=== PATIENT | female | born 1955 | race Caucasian/White ===

== ENCOUNTER 2017-03-31 22:39 | Inpatient (IN) | payer SELFPAY ==
[~2017-03-31] VITALS: Ht 162.6 cm; Wt 53.8 kg
[~2017-03-31 22:39] MED LIST: ASPI325T PO; Z.0.NO CURRENT MEDS
[2017-03-31 22:47] VITALS: BP 160/104; PULSE 114; RESP 16; TEMP 100.5; O2SAT 98
[2017-03-31] MEDS ORDERED: ACETAMINOPHEN 325 MG TAB PO ONE (23:30)
[2017-03-31] MEDS ORDERED: ACETAMINOPHEN/HYDROcodone 325 MG/5 MG TAB PO ONE (23:30)
[2017-03-31] MEDS ORDERED: SODIUM CHLOR 0.9% 1000 ML INJ 1,000 ML IV ONE (23:30)
[2017-03-31] MEDS ORDERED: CLINDAMYCIN INJ 600 MG in SODIUM CHLORIDE 0.9% INJ 100 ML IV ONE (23:30)
[2017-03-31] MEDS ORDERED: KETOROLAC TROMETHAMINE 30 MG/ML (IVP) VIAL IVP ONE (23:30)
[2017-03-31] MEDS ORDERED: TETANUS/DIPHTHERIA TOXOID ADULT 0.5 ML VIAL IM ONE (23:30)
--- NOTE | 2017-03-31 23:34 | PD ---
HPI Chief Complaint: Skin Problem Time Seen by Provider: 23:13 Travel History International Travel<30 days: No Contact w/Intl Traveler<30days: No Traveled to known affect area: No History of Present Illness HPI The patient is a 61-year-old female who presents to the emergency department for pain and swelling to the forearms bilaterally. The patient states that she was advised by insects on her forearms which subsequently caused some erythema and swelling. The patient complains of pain over the affected area, denies any direct trauma such as scratching her IV drug use to the upper extremities. The patient does have a history of remote IV drug abuse , states she quit using IV drugs at the age of 17. She most recently used crack cocaine one week ago, via smoking. She denies any chronic alcohol abuse. She does complain of subjective fevers at home as well as diffuse body aches. Symptoms are moderate, no alleviating or exacerbating factors, however, she states her symptoms started after she was bit by an insect. PFSH Past Medical History Arthritis: No Asthma: No Autoimmune Disease: No Blood Disorders: No Heart Rhythm Problems: No Cancer: No High Cholesterol: No Chemotherapy: No Congestive Heart Failure: No COPD: No Cerebrovascular Accident: No Diminished Hearing: No GERD: No Glaucoma: No Hepatitis: Yes (C) Hiatal Hernia: No Hypertension: Yes Kidney Stones: No Psychiatric: No Myocardial Infarction: No Radiation Therapy: No Renal Failure: No Seizures: No Sleep Apnea: No Thyroid Disease: No Ulcer: No : 2 Para: 2 Ovarian Cysts: Yes Past Surgical History AICD: No Appendectomy: Yes Genitourinary Surgery: No Gynecologic Surgery: Yes (REMOVAL OVARIAN CYST) Hysterectomy: Yes Pacemaker: No Other Surgery: No Social History Alcohol Use: Yes Tobacco Use: Yes (1 week) Substance Use: Yes (crack cocaine one week ago) Allergies-Medications (Allergen,Severity, Reaction): Coded Allergies: No Known Allergies (Verified , 04/01/17) Reported Meds & Prescriptions Reported Meds & Active Scripts Active No Active Prescriptions or Reported Medications Review of Systems Except as stated in HPI: all other systems reviewed are Neg General / Constitutional: Positive: Fever, Chills HENT: No: Lightheadedness Cardiovascular: No: Chest Pain or Discomfort Respiratory: No: Shortness of Breath Gastrointestinal: No: Nausea, Vomiting, Abdominal Pain Musculoskeletal: Positive: Myalgias Skin: Positive Other (as noted in the history of present illness) Psychiatric: Positive: Substance Abuse Physical Exam Narrative GENERAL: Awake, alert, nontoxic-appearing 61-year-old female who appears her stated age and is in no acute respiratory distress. SKIN: Focused skin assessment warm/dry. Skin changes noted over the upper extremities bilateral over the extensor surface of the forearms with mild erythema and edema noted. Old-appearing lesions on the back as well as lower extremities. HEAD: Atraumatic. Normocephalic. EYES: Pupils equal and round. No scleral icterus. No injection or drainage. ENT: No nasal bleeding or discharge. Mucous membranes pink and moist. NECK: Trachea midline. No JVD. CARDIOVASCULAR: Regular rate and rhythm. No murmur appreciated. RESPIRATORY: No accessory muscle use. Clear to auscultation. Breath sounds equal bilaterally. GASTROINTESTINAL: Abdomen soft, non-tender, nondistended. MUSCULOSKELETAL: No obvious deformities. No clubbing. No cyanosis. No edema. NEUROLOGICAL: Awake and alert. No obvious cranial nerve deficits. Motor grossly within normal limits. Normal speech. PSYCHIATRIC: Appropriate mood and affect; insight and judgment normal. Data Data Last Documented VS Vital Signs Date Time Temp Pulse Resp B/P (MAP) Pulse Ox O2 Delivery O2 Flow Rate FiO2 04/01/17 01:09 99.4 88 18 129/62 (84) 99 Room Air Orders Orders Complete Blood Count With Diff (03/31/17 23:26) Blood Culture (03/31/17 23:26) Iv Access Insert/Monitor (03/31/17 23:26) Acetaminophen (Tylenol) (03/31/17 23:30) Acetamin-Hydrocod 325-5 Mg (Bonduel 5-325 (03/31/17 23:30) Ketorolac Inj (Toradol Inj) (03/31/17 23:30) Clindamycin Inj (Cleocin Inj) (03/31/17 23:30) Tetanus/Diphtheria Tox Adult (Tetanus/Di (03/31/17 23:30) Comprehensive Metabolic Panel (03/31/17 23:26) Creatine Kinase (Cpk) (03/31/17 23:26) Sodium Chlor 0.9% 1000 Ml Inj (Ns 1000 M (03/31/17 23:30) Lactic Acid (03/31/17 23:26) CKMB (03/31/17 ) CKMB% (03/31/17 ) Sodium Chlor 0.9% 1000 Ml Inj (Ns 1000 M (04/01/17 01:30) Potassium Chloride (Kcl) (04/01/17 01:30) Add Patient To Providers List (04/01/17 ) Admit To Inpatient (04/01/17 ) Vital Signs (Adult) DEVON.Q4H (04/01/17 01:35) Activity Oob With Assistance (04/01/17 01:35) Intake + Output 06,14,22 (04/01/17 01:35) Diet Regular Basic (04/01/17 Breakfast) Resp Oxygen Rohith C Titrat 1-4 L (04/01/17 ) Sodium Chloride 0.9% Flush (Ns Flush) (04/01/17 01:45) Sodium Chloride 0.9% Flush (Ns Flush) (04/01/17 09:00) Inpatient Certification (04/01/17 ) Admit Order (Ed Use Only) (04/01/17 01:41) Labs Laboratory Tests Test 03/31/17 00:00 White Blood Count 10.0 TH/MM3 Red Blood Count 3.27 MIL/MM3 Hemoglobin 9.6 GM/DL Hematocrit 28.9 % Mean Corpuscular Volume 88.5 FL Mean Corpuscular Hemoglobin 29.4 PG Mean Corpuscular Hemoglobin Concent 33.2 % Red Cell Distribution Width 15.7 % Platelet Count 228 TH/MM3 Mean Platelet Volume 7.8 FL Neutrophils (%) (Auto) 75.1 % Lymphocytes (%) (Auto) 12.1 % Monocytes (%) (Auto) 11.6 % Eosinophils (%) (Auto) 0.9 % Basophils (%) (Auto) 0.3 % Neutrophils # (Auto) 7.5 TH/MM3 Lymphocytes # (Auto) 1.2 TH/MM3 Monocytes # (Auto) 1.2 TH/MM3 Eosinophils # (Auto) 0.1 TH/MM3 Basophils # (Auto) 0.0 TH/MM3 CBC Comment DIFF FINAL Differential Comment Blood Urea Nitrogen 9 MG/DL Creatinine 0.83 MG/DL Random Glucose 115 MG/DL Total Protein 8.0 GM/DL Albumin 3.0 GM/DL Calcium Level 8.2 MG/DL Alkaline Phosphatase 89 U/L Aspartate Amino Transf (AST/SGOT) 124 U/L Alanine Aminotransferase (ALT/SGPT) 76 U/L Total Bilirubin 0.6 MG/DL Sodium Level 130 MEQ/L Potassium Level 3.1 MEQ/L Chloride Level 99 MEQ/L Carbon Dioxide Level 22.1 MEQ/L Anion Gap 9 MEQ/L Estimat Glomerular Filtration Rate 69 ML/MIN Lactic Acid Level 1.6 mmol/L Total Creatine Kinase 1288 U/L Creatine Kinase MB 9.7 NG/ML Creatine Kinase MB % 0.8 % [facility] Medical Decision Making Medical Screen Exam Complete: Yes Emergency Medical Condition: Yes Medical Record Reviewed: Yes Interpretation(s) Laboratory Tests Test 03/31/17 00:00 White Blood Count 10.0 TH/MM3 Red Blood Count 3.27 MIL/MM3 Hemoglobin 9.6 GM/DL Hematocrit 28.9 % Mean Corpuscular Volume 88.5 FL Mean Corpuscular Hemoglobin 29.4 PG Mean Corpuscular Hemoglobin Concent 33.2 % Red Cell Distribution Width 15.7 % Platelet Count 228 TH/MM3 Mean Platelet Volume 7.8 FL Neutrophils (%) (Auto) 75.1 % Lymphocytes (%) (Auto) 12.1 % Monocytes (%) (Auto) 11.6 % Eosinophils (%) (Auto) 0.9 % Basophils (%) (Auto) 0.3 % Neutrophils # (Auto) 7.5 TH/MM3 Lymphocytes # (Auto) 1.2 TH/MM3 Monocytes # (Auto) 1.2 TH/MM3 Eosinophils # (Auto) 0.1 TH/MM3 Basophils # (Auto) 0.0 TH/MM3 CBC Comment DIFF FINAL Differential Comment Blood Urea Nitrogen 9 MG/DL Creatinine 0.83 MG/DL Random Glucose 115 MG/DL Total Protein 8.0 GM/DL Albumin 3.0 GM/DL Calcium Level 8.2 MG/DL Alkaline Phosphatase 89 U/L Aspartate Amino Transf (AST/SGOT) 124 U/L Alanine Aminotransferase (ALT/SGPT) 76 U/L Total Bilirubin 0.6 MG/DL Sodium Level 130 MEQ/L Potassium Level 3.1 MEQ/L Chloride Level 99 MEQ/L Carbon Dioxide Level 22.1 MEQ/L Anion Gap 9 MEQ/L Estimat Glomerular Filtration Rate 69 ML/MIN Lactic Acid Level 1.6 mmol/L Total Creatine Kinase 1288 U/L Creatine Kinase MB 9.7 NG/ML Creatine Kinase MB % 0.8 % Differential Diagnosis Differential diagnosis includes infected wound, cellulitis, abscess, sepsis, drug abuse. Narrative Course IV was established, labs are drawn and sent, and the patient was placed on cardiac telemetry monitoring and continuous pulse oximetry monitoring. Blood culture and lactic acid were sent to lab. The patient was administered clindamycin 600 mg intravenously, 1 L normal saline, Toradol, and Bonduel for her pain. The patient's temperature did come down from 100.5-99.9 with medications. The patient's CPK was greater than 1200, most likely the cause of the patient's myalgias. The patient was administered a second liter of IV fluids. The lactic acid was normal at 1.6. The patient's potassium is low at 3.1, was replaced orally. The patient does have a history of crack cocaine use with secondary rhabdomyolysis and cellulitis with hypokalemia. Therefore, the patient will be a 23 hour observation to the on-call medical service. Sepsis Criteria SIRS Criteria (2 or more): Heart rate over 90 Physician Communication Physician Communication I discussed the patient with Dr. Ledesma who agrees with 23 hour observation. Diagnosis Primary Impression: Cellulitis Qualified Codes: L03.119 - Cellulitis of unspecified part of limb Additional Impressions: Rhabdomyolysis Qualified Codes: M62.82 - Rhabdomyolysis Hypokalemia Scripts No Active Prescriptions or Reported Meds Condition: Stable Zac Mcgregor MD Mar 31, 2017 23:34
[2017-04-01] VITALS (11 sets, daily range): BP systolic 119–192; BP diastolic 62–88; PULSE 73–96; RESP 17–20; TEMP 97.8–101.1; O2SAT 97–100
[2017-04-01 00:12] LABS: AUTOMATED NEUTROPHIL # 7.5 TH/MM3 (1.8-7.7); BASOPHIL % 0.3 % (0.0-2.0); EOSINOPHIL # 0.1 TH/MM3 (0-0.4); EOSINOPHIL % 0.9 % (0.0-4.0); HEMATOCRIT 28.9 % (35.0-46.0); HEMO FLAGS DIFF FINAL; LYMPH % 12.1 % (9.0-44.0); LYMPHOCYTE # 1.2 TH/MM3 (1.0-4.8); MEAN CELL VOLUME 88.5 FL (80.0-100.0); MEAN CORPUSCULAR HEMOGLOBIN 29.4 PG (27.0-34.0); MEAN CORPUSCULAR HGB CONC 33.2 % (32.0-36.0); MONO % 11.6 % (0.0-8.0); NEUT % 75.1 % (16.0-70.0); PLATELET COUNT 228 TH/MM3 (150-450); RED BLOOD COUNT 3.27 MIL/MM3 (4.00-5.30); RED CELL DISTRIBUTION WIDTH 15.7 % (11.6-17.2)
[2017-04-01 00:45] LABS: ALT (GPT) 76 U/L (10-53); ANION GAP 9 MEQ/L (5-15); AST (GOT) 124 U/L (15-37); BICARBONATE 22.1 MEQ/L (21.0-32.0); BLOOD UREA NITROGEN 9 MG/DL (7-18); CHLORIDE 99 MEQ/L (98-107); GLOMERULAR FILTRATION RATE 69 ML/MIN (>89); POTASSIUM 3.1 MEQ/L (3.5-5.1); SODIUM (NA) 130 MEQ/L (136-145)
[2017-04-01 00:59] LABS: ALKALINE PHOSPHATASE 89 U/L (45-117); CREATINE KINASE 1288 U/L (26-192); TOTAL BILIRUBIN ADULT 0.6 MG/DL (0.2-1.0)
[2017-04-01 01:14] LABS: CKMB 9.7 NG/ML (0.5-3.6)
[2017-04-01] MEDS ORDERED: SODIUM CHLOR 0.9% 1000 ML INJ 1,000 ML IV ONE (01:30)
[2017-04-01] MEDS ORDERED: POTASSIUM CHLORIDE 20 MEQ CONTROLLED RELEASE TAB PO ONE (01:30)
[2017-04-01] MEDS ORDERED: SODIUM CHLORIDE 0.9% FLUSH 10 ML FLUSH IV FLUSH PRN (01:45)
[2017-04-01] MEDS ORDERED: LACTULOSE SYRUP 20 GM/30 ML CUP PO PRN (02:00)
[2017-04-01] MEDS ORDERED: NALOXONE HCL 0.4 MG/ML AMP IV PRN (02:00)
[2017-04-01] MEDS ORDERED: MAGNESIUM HYDROXIDE SUSP 30 ML CUP PO PRN (02:00)
[2017-04-01] MEDS ORDERED: ACETAMINOPHEN 325 MG TAB PO PRN ×2 (02:00→20:45)
[2017-04-01] MEDS ORDERED: SENNOSIDES 8.6 MG TAB PO PRN (02:00)
[2017-04-01] MEDS ORDERED: KETOROLAC TROMETHAMINE 30 MG/ML (IVP) VIAL IVP PRN ×2 (02:00)
[2017-04-01] MEDS ORDERED: HYDROmorphone HCL 2 MG TAB PO PRN (02:00)
--- NOTE | 2017-04-01 02:48 | HHI.HP ---
[facility] No Primary Care Physician Admission Diagnosis cellulitis right upper extremity, rhabdomyolysis Diagnoses: Chief Complaint: Cellulitis bilateral upper extremities Travel History International Travel<30 Days: No Contact w/Intl Traveler <30 Da: No Traveled to Known Affected Are: No History of Present Illness This is a 61-year-old female with a history of hepatitis C. She is not a good historian. She presents to the emergency department because of bilateral upper extremity swelling, pain and erythema. She reports of chronic irritation of her extremities from insect bites for the past 6 months. Lately she noted swelling, erythema and pain affecting her upper extremities. No saltwater exposure. She also has subjective fevers and bodyaches admits to using crack cocaine about a week ago. History of remote IV drug use at age 17. She has been started on IV clindamycin in the emergency department. All other systems reviewed negative Review of Systems Except as stated in HPI: all other systems reviewed are Neg Past Family Social History Past Medical History As previously mentioned Past Surgical History Appendectomy and hysterectomy Reported Medications Denies Allergies: Coded Allergies: No Known Allergies (Verified , 04/01/17) Family History Diabetes Social History Occasional alcohol use. Tobacco use Physical Exam Vital Signs Vital Signs Date Time Temp Pulse Resp B/P (MAP) Pulse Ox O2 Delivery O2 Flow Rate FiO2 04/01/17 02:29 04/01/17 01:09 99.4 88 18 129/62 (84) 99 Room Air 03/31/17 22:47 100.5 114 16 160/104 (122) 98 Physical Exam GENERAL: This is a well-nourished, well-developed patient, in no apparent distress. SKIN: No rashes, ecchymoses or lesions. Cool and dry. Scattered wounds in various stages of healing in the back and extremities HEAD: Atraumatic. Normocephalic. No temporal or scalp tenderness. EYES: Pupils equal round and reactive. Extraocular motions intact. No scleral icterus. No injection or drainage. ENT: Nose without bleeding, purulent drainage or septal hematoma. Throat without erythema, tonsillar hypertrophy or exudate. Uvula midline. Airway patent. NECK: Trachea midline. No JVD or lymphadenopathy. Supple, nontender, no meningeal signs. CARDIOVASCULAR: Regular rate and rhythm without murmurs, gallops, or rubs. RESPIRATORY: Clear to auscultation. Breath sounds equal bilaterally. No wheezes , rales, or rhonchi. GASTROINTESTINAL: Abdomen soft, non-tender, nondistended. No guarding. MUSCULOSKELETAL: Extremities without clubbing, cyanosis, or edema. No joint tenderness, effusion, or edema noted. No calf tenderness. Negative Homans sign bilaterally. Bilateral upper extremities with cellulitis in the extensor surfaces with erythema, tenderness and edema NEUROLOGICAL: Awake and alert. Cranial nerves II through XII intact. Motor and sensory grossly within normal limits. Five out of 5 muscle strength in all muscle groups. Normal speech. Laboratory Date/Time Source Procedure Growth Status 03/31/17 00:00 Blood Peripheral Aerobic Blood Culture Pending Received 03/31/17 00:00 Blood Peripheral Anaerobic Blood Culture Pending Received Result Diagram: 03/31/17 0000 03/31/17 0000 Caprini VTE Risk Assessment Caprini VTE Risk Assessment: Mod/High Risk (score >= 2) Caprini Risk Assessment Model Point Value = 1 Point Value = 2 Point Value = 3 Point Value = 5 Age 41-60 Minor surgery BMI > 25 kg/m2 Swollen legs Varicose veins or History of unexplained or recurrent spontaneous Oral contraceptives or hormone replacement Sepsis (< 1 month) Serious lung disease, including pneumonia (< 1 month) Abnormal pulmonary function Acute myocardial infarction Congestive heart failure (< 1 month) History of inflammatory bowel disease Medical patient at bed rest Age 61-74 Arthroscopic surgery Major open surgery (> 45 min) Laparoscopic surgery (> 45 min) Malignancy Confined to bed (> 72 hours) Immobilizing plaster cast Central venous access Age >= 75 History of VTE Family history of VTE Factor V Leiden Prothrombin [id number] Lupus anticoagulant Anticardiolipin antibodies Elevated serum homocysteine Heparin-induced thrombocytopenia Other congenital or acquired thrombophilia Stroke (< 1 month) Elective arthroplasty Hip, pelvis, or leg fracture Acute spinal cord injury (< 1 month) Prophylaxis Regimen Total Risk Factor Score Risk Level Prophylaxis Regimen 0-1 Low Early ambulation 2 Moderate Order ONE of the following: *Sequential Compression Device (SCD) *Heparin 5000 units SQ BID 3-4 Higher Order ONE of the following medications: *Heparin 5000 units SQ TID *Enoxaparin/Lovenox 40 mg SQ daily (WT < 150 kg, CrCl > 30 mL/min) *Enoxaparin/Lovenox 30 mg SQ daily (WT < 150 kg, CrCl > 10-29 mL/min) *Enoxaparin/Lovenox 30 mg SQ BID (WT < 150 kg, CrCl > 30 mL/min) AND/OR *Sequential Compression Device (SCD) 5 or more Highest Order ONE of the following medications: *Heparin 5000 units SQ TID (Preferred with Epidurals) *Enoxaparin/Lovenox 40 mg SQ daily (WT < 150 kg, CrCl > 30 mL/min) *Enoxaparin/Lovenox 30 mg SQ daily (WT < 150 kg, CrCl > 10-29 mL/min) *Enoxaparin/Lovenox 30 mg SQ BID (WT < 150 kg, CrCl > 30 mL/min) AND *Sequential Compression Device (SCD) Assessment and Plan Assessment and Plan This is a 61-year-old female with a history of hepatitis C. She is not a good historian. She presents to the emergency department because of bilateral upper extremity swelling, pain and erythema. She reports of chronic irritation of her extremities from insect bites for the past 6 months. Lately she noted swelling, erythema and pain affecting her upper extremities. History of remote IV drug use at age 17. Bilateral upper extremity wound infection with cellulitis. Continue IV clindamycin and follow-up blood culture. The management with Dilaudid and IV morphine for consult infectious disease Rhabdomyolysis secondary to crack cocaine use. Continue IV hydration and monitor CK. Patient counseled regarding cocaine use Hypokalemia. Replace with 40 mEq potassium. Check magnesium Normocytic normochromic anemia. No gross bleeding. Hemoccult stools and check iron studies. Needs colonoscopy outpatient Mild hyponatremia. Asymptomatic. Monitor Transaminitis with history of hepatitis C DVT prophylaxis with SCD and early ambulation Discussed Condition With Patient Ruben Ledesma MD Apr 01, 2017 02:48
[2017-04-01] MEDS: SODIUM CHLOR 0.9% 1000 ML INJ 1,000 ML IV SCH ×3 (03:30→20:58)
[2017-04-01 04:19] LABS: MAGNESIUM 1.7 MG/DL (1.5-2.5)
[2017-04-01] MEDS: CLINDAMYCIN INJ 600 MG in SODIUM CHLORIDE 0.9% INJ 100 ML IV SCH ×3 (06:19→18:32)
[2017-04-01] MEDS: SODIUM CHLORIDE 0.9% FLUSH 10 ML FLUSH IV FLUSH SCH ×2 (08:34→20:58)
[2017-04-01] MEDS: DOCUSATE SODIUM 50 MG/SENNA 8.6 MG TAB PO SCH ×2 (08:34→20:58)
--- NOTE | 2017-04-01 12:24 | HHI.PR ---
Subjective Remarks resting comfortably with no distress. has some pain to both arms. no fever. Objective Vitals Vital Signs Date Time Temp Pulse Resp B/P (MAP) Pulse Ox O2 Delivery O2 Flow Rate FiO2 04/01/17 08:00 97.9 73 17 141/80 (100) 99 04/01/17 06:10 98 21 04/01/17 03:09 97.8 86 18 119/64 (82) 100 04/01/17 02:29 04/01/17 01:09 99.4 88 18 129/62 (84) 99 Room Air 03/31/17 22:47 100.5 114 16 160/104 (122) 98 I/O 03/31/17 03/31/17 03/31/17 04/01/17 04/01/17 04/01/17 07:00 15:00 23:00 07:00 15:00 23:00 Intake Total 240 ml Balance 240 ml Intake Oral 240 ml Result Diagram: 03/31/17 2305 03/31/17 2305 Objective Remarks GENERAL: This is a well-nourished, well-developed patient, in no apparent distress. CARDIOVASCULAR: Regular rate and regular rhythm without murmurs, gallops, or rubs. RESPIRATORY: Clear to auscultation. Breath sounds equal bilaterally. No wheezes , rales, or rhonchi. GASTROINTESTINAL: Abdomen soft, non-tender, nondistended. Normal, active bowel sounds MUSCULOSKELETAL: Extremities without clubbing, cyanosis, or edema. NEURO: Alert & Oriented x4 to person, place, time, situation. Moves all ext x4 skin; erythema noted over both upper extremities Medications and IVs Current Medications Acetaminophen (Tylenol) 650 mg ONCE ONCE PO Last administered on 04/01/17 00: 10; Start 03/31/17 at 23:30; Stop 03/31/17 at 23:31; Status DC Acetaminophen/ Hydrocodone Bitart ([place] 5-325 Mg) 1 tab ONCE ONCE PO Last administered on 04/01/17 00:10; Start 03/31/17 at 23:30; Stop 03/31/17 at 23:31 ; Status DC Ketorolac Tromethamine (Toradol Inj) 30 mg ONCE ONCE IVP Last administered on 04/01/17 00:10; Start 03/31/17 at 23:30; Stop 03/31/17 at 23:31; Status DC Clindamycin Phosphate 600 mg/ Sodium Chloride 104 ml @ 200 mls/hr ONCE ONCE IV Last administered on 04/01/17 00:10; Start 03/31/17 at 23:30; Stop at 00:01; Status DC Tetanus/ Diphtheria Toxoids (Tetanus/ Diphtheria Tox Adult) 0.5 ml ONCE ONCE IM Last administered on 04/01/17 00:09; Start 03/31/17 at 23:30; Stop 03/31/17 at 23:31; Status DC Sodium Chloride 1,000 ml @ 999 mls/hr BOLUS ONCE IV Last administered on 04/01 00:10; Start 03/31/17 at 23:30; Stop 04/01/17 at 00:30; Status DC Sodium Chloride 1,000 ml @ 999 mls/hr BOLUS ONCE IV Last administered on 04/01 01:29; Start 04/01/17 at 01:30; Stop 04/01/17 at 02:30; Status DC Potassium Chloride (KCl) 40 meq ONCE ONCE PO Last administered on 04/01/17 01 :29; Start 04/01/17 at 01:30; Stop 04/01/17 at 01:31; Status DC Sodium Chloride (NS Flush) 2 ml UNSCH PRN IV FLUSH FLUSH AFTER USING IV ACCESS ; Start 04/01/17 at 01:45 Sodium Chloride (NS Flush) 2 ml BID IV FLUSH ; Start 04/01/17 at 09:00 Clindamycin Phosphate 600 mg/ Sodium Chloride 104 ml @ 208 mls/hr Q6H IV Last administered on 04/01/17 06:19; Start 04/01/17 at 06:00 Sodium Chloride 1,000 ml @ 100 mls/hr Q10H IV Last administered on 04/01/17 03:30; Start 04/01/17 at 01:50 Acetaminophen (Tylenol) 650 mg Q4H PRN PO TEMP > 100.4; Start 04/01/17 at 02:00 Ondansetron HCl (Zofran Inj) 4 mg Q6H PRN IVP NAUSEA OR VOMITING; Start at 02:00 Ketorolac Tromethamine (Toradol Inj) 15 mg Q6H PRN IVP Pain 3-5; if unable to take PO; Start 04/01/17 at 02:00; Stop 04/06/17 at 01:59 Ketorolac Tromethamine (Toradol Inj) 30 mg Q6H PRN IVP Pain 6-10;if unable to take PO; Start 04/01/17 at 02:00; Stop 04/06/17 at 01:59 Morphine Sulfate (Morphine Inj) 2 mg Q3H PRN IV BREAKTHROUGH PAIN; Start at 02:00 Hydromorphone HCl (Dilaudid) 1 mg Q4H PRN PO PAIN SCALE 3 TO 5 Last administered on 04/01/17t 03:21; Start 04/01/17 at 02:00 Hydromorphone HCl (Dilaudid) 2 mg Q4H PRN PO PAIN SCALE 6 TO 10; Start at 02:00 Naloxone HCl (Narcan Inj) 0.4 mg UNSCH PRN IV SEE LABEL COMMENTS; Start at 02:00 Senna/Docusate Sodium (Eleonora-Colace) 1 tab BID PO ; Start 04/01/17 at 09:00 Magnesium Hydroxide (Milk Of Magnesia Liq) 30 ml Q12H PRN PO MILD - MODERATE CONSTIPATION; Start 04/01/17 at 02:00 Sennosides (Senokot) 17.2 mg Q12H PRN PO MODERATE - SEVERE CONSTIPATION; Start 04/01/17 at 02:00 Lactulose (Lactulose Liq) 30 ml DAILY PRN PO SEVERE CONSITIPATION; Start at 02:00 A/P Assessment and Plan Bilateral upper extremity wound infection with cellulitis. Continue IV clindamycin and follow-up blood culture. continue pain control. Rhabdomyolysis secondary to crack cocaine use. Continue IV hydration and monitor CK. Patient counseled regarding cocaine use Hypokalemia. Replaced with 40 mEq potassium. will monitor. Normocytic normochromic anemia. No gross bleeding. Hemoccult stools and check iron studies. Needs colonoscopy outpatient Mild hyponatremia. Asymptomatic. Monitor Transaminitis with history of hepatitis C DVT prophylaxis with SCD and early ambulation Surekha Esquivel MD Apr 01, 2017 12:23
[2017-04-01] MEDS ORDERED: cloNIDine HCL 0.1 MG TAB PO ONE ×2 (20:45→22:45)
[2017-04-01] MEDS ORDERED: ACETAMINOPHEN 325 MG TAB PO ONE (21:00)
[2017-04-02] VITALS (7 sets, daily range): BP systolic 115–153; BP diastolic 56–66; PULSE 68–86; RESP 16–20; TEMP 97.5–98.9; O2SAT 96–99
[2017-04-02] MEDS: CLINDAMYCIN INJ 600 MG in SODIUM CHLORIDE 0.9% INJ 100 ML IV SCH ×3 (00:50→12:52)
[2017-04-02] MEDS: SODIUM CHLOR 0.9% 1000 ML INJ 1,000 ML IV SCH ×2 (05:52→17:50)
[2017-04-02 08:35] LABS: AUTOMATED NEUTROPHIL # 3.2 TH/MM3 (1.8-7.7); BASOPHIL % 0.4 % (0.0-2.0); EOSINOPHIL # 0.2 TH/MM3 (0-0.4); EOSINOPHIL % 4.3 % (0.0-4.0); HEMATOCRIT 25.3 % (35.0-46.0); HEMO FLAGS DIFF FINAL; LYMPH % 23.8 % (9.0-44.0); LYMPHOCYTE # 1.3 TH/MM3 (1.0-4.8); MEAN CELL VOLUME 90.2 FL (80.0-100.0); MEAN CORPUSCULAR HEMOGLOBIN 29.7 PG (27.0-34.0); MEAN CORPUSCULAR HGB CONC 32.9 % (32.0-36.0); MONO % 10.5 % (0.0-8.0); PLATELET COUNT 179 TH/MM3 (150-450); RED BLOOD COUNT 2.81 MIL/MM3 (4.00-5.30); RED CELL DISTRIBUTION WIDTH 16.1 % (11.6-17.2); WHITE BLOOD COUNT 5.3 TH/MM3 (4.0-11.0)
[2017-04-02] MEDS: MORPHINE SULFATE 4 MG/ML INJ IV PRN ×2 (08:42→13:56)
[2017-04-02] MEDS: DOCUSATE SODIUM 50 MG/SENNA 8.6 MG TAB PO SCH ×2 (08:46→20:54)
[2017-04-02] MEDS: SODIUM CHLORIDE 0.9% FLUSH 10 ML FLUSH IV FLUSH SCH ×2 (08:47→20:54)
[2017-04-02 09:05] LABS: ANION GAP 9 MEQ/L (5-15); BICARBONATE 20.4 MEQ/L (21.0-32.0); BLOOD UREA NITROGEN 7 MG/DL (7-18); CHLORIDE 103 MEQ/L (98-107); GLOMERULAR FILTRATION RATE 105 ML/MIN (>89); POTASSIUM 3.2 MEQ/L (3.5-5.1); SODIUM (NA) 132 MEQ/L (136-145)
[2017-04-02 09:08] LABS: CREATINE KINASE 332 U/L (26-192); FERRITIN 27 NG/ML (8-252); TRANSFERRIN IRON PROFILE 245 MG/DL (200-360)
[2017-04-02 09:35] LABS: CALCIUM-PROTEIN CORRECTED 7.6 MG/DL (8.5-10.1)
[2017-04-02 10:01] LABS: CKMB 2.9 NG/ML (0.5-3.6)
[2017-04-02] MEDS: HYDROmorphone HCL 2 MG TAB PO PRN ×2 (10:23→18:05)
--- NOTE | 2017-04-02 11:12 | HHI.PR ---
Subjective Remarks has some pain to both arms. on and off fever; T max 101.1. d/w the RN. Objective Vitals Vital Signs Date Time Temp Pulse Resp B/P (MAP) Pulse Ox O2 Delivery O2 Flow Rate FiO2 04/02/17 10:55 96 04/02/17 04:00 98.6 71 16 120/56 (77) 98 04/02/17 02:08 Room Air 04/02/17 01:48 97.5 68 18 134/59 (84) 99 04/01/17 23:32 100.3 84 17 137/66 (89) 99 04/01/17 22:41 186/72 (110) 04/01/17 22:01 100.7 86 17 181/75 (110) 98 04/01/17 20:55 190/87 (121) 04/01/17 20:16 101.1 96 18 192/74 (113) 97 04/01/17 16:00 100.0 95 20 155/88 (110) 97 04/01/17 12:00 98.4 94 18 137/77 (97) 100 I/O 04/01/17 04/01/17 04/01/17 04/02/17 04/02/17 04/02/17 07:00 15:00 23:00 07:00 15:00 23:00 Intake Total 1290 ml 100 ml 120 ml Balance 1290 ml 100 ml 120 ml Intake Oral 240 ml 120 ml IV Total 1050 ml 100 ml # Voids 1 # Bowel Movements 0 Result Diagram: 04/02/17 0701 04/02/17 0619 Objective Remarks GENERAL: This is a well-nourished, well-developed patient, in no apparent distress. CARDIOVASCULAR: Regular rate and regular rhythm without murmurs, gallops, or rubs. RESPIRATORY: Clear to auscultation. Breath sounds equal bilaterally. No wheezes , rales, or rhonchi. GASTROINTESTINAL: Abdomen soft, non-tender, nondistended. Normal, active bowel sounds MUSCULOSKELETAL: Extremities without clubbing, cyanosis, or edema. NEURO: Alert & Oriented x4 to person, place, time, situation. Moves all ext x4 skin; erythema noted over both upper extremities Medications and IVs Current Medications Acetaminophen (Tylenol) 650 mg ONCE ONCE PO Last administered on 04/01/17t 00: 10; Start 03/31/17 at 23:30; Stop 03/31/17 at 23:31; Status DC Acetaminophen/ Hydrocodone Bitart ([place] 5-325 Mg) 1 tab ONCE ONCE PO Last administered on 04/01/17 00:10; Start 03/31/17 at 23:30; Stop 03/31/17 at 23:31 ; Status DC Ketorolac Tromethamine (Toradol Inj) 30 mg ONCE ONCE IVP Last administered on 04/01/17 00:10; Start 03/31/17 at 23:30; Stop 03/31/17 at 23:31; Status DC Clindamycin Phosphate 600 mg/ Sodium Chloride 104 ml @ 200 mls/hr ONCE ONCE IV Last administered on 04/01/17 00:10; Start 03/31/17 at 23:30; Stop at 00:01; Status DC Tetanus/ Diphtheria Toxoids (Tetanus/ Diphtheria Tox Adult) 0.5 ml ONCE ONCE IM Last administered on 04/01/17 00:09; Start 03/31/17 at 23:30; Stop 03/31/17 at 23:31; Status DC Sodium Chloride 1,000 ml @ 999 mls/hr BOLUS ONCE IV Last administered on 04/01 00:10; Start 03/31/17 at 23:30; Stop 04/01/17 at 00:30; Status DC Sodium Chloride 1,000 ml @ 999 mls/hr BOLUS ONCE IV Last administered on 04/01 01:29; Start 04/01/17 at 01:30; Stop 04/01/17 at 02:30; Status DC Potassium Chloride (KCl) 40 meq ONCE ONCE PO Last administered on 04/01/17 01 :29; Start 04/01/17 at 01:30; Stop 04/01/17 at 01:31; Status DC Sodium Chloride (NS Flush) 2 ml UNSCH PRN IV FLUSH FLUSH AFTER USING IV ACCESS ; Start 04/01/17 at 01:45 Sodium Chloride (NS Flush) 2 ml BID IV FLUSH Last administered on 04/02/17 08: 47; Start 04/01/17 at 09:00 Clindamycin Phosphate 600 mg/ Sodium Chloride 104 ml @ 208 mls/hr Q6H IV Last administered on 04/02/17 05:51; Start 04/01/17 at 06:00 Sodium Chloride 1,000 ml @ 100 mls/hr Q10H IV Last administered on 04/02/17 05:52; Start 04/01/17 at 01:50 Acetaminophen (Tylenol) 650 mg Q4H PRN PO TEMP > 100.4; Start 04/01/17 at 02:00 ; Stop 04/01/17 at 20:39; Status DC Ondansetron HCl (Zofran Inj) 4 mg Q6H PRN IVP NAUSEA OR VOMITING; Start at 02:00 Ketorolac Tromethamine (Toradol Inj) 15 mg Q6H PRN IVP Pain 3-5; if unable to take PO; Start 04/01/17 at 02:00; Stop 04/06/17 at 01:59 Ketorolac Tromethamine (Toradol Inj) 30 mg Q6H PRN IVP Pain 6-10;if unable to take PO; Start 04/01/17 at 02:00; Stop 04/06/17 at 01:59 Morphine Sulfate (Morphine Inj) 2 mg Q3H PRN IV BREAKTHROUGH PAIN Last administered on 04/02/17 08:42; Start 04/01/17 at 02:00 Hydromorphone HCl (Dilaudid) 1 mg Q4H PRN PO PAIN SCALE 3 TO 5 Last administered on 04/01/17 03:21; Start 04/01/17 at 02:00 Hydromorphone HCl (Dilaudid) 2 mg Q4H PRN PO PAIN SCALE 6 TO 10 Last administered on 04/02/17 10:23; Start 04/01/17 at 02:00 Naloxone HCl (Narcan Inj) 0.4 mg UNSCH PRN IV SEE LABEL COMMENTS; Start at 02:00 Senna/Docusate Sodium (Eleonora-Colace) 1 tab BID PO Last administered on 08:46; Start 04/01/17 at 09:00 Magnesium Hydroxide (Milk Of Magnesia Liq) 30 ml Q12H PRN PO MILD - MODERATE CONSTIPATION; Start 04/01/17 at 02:00 Sennosides (Senokot) 17.2 mg Q12H PRN PO MODERATE - SEVERE CONSTIPATION; Start 04/01/17 at 02:00 Lactulose (Lactulose Liq) 30 ml DAILY PRN PO SEVERE CONSITIPATION; Start at 02:00 Acetaminophen (Tylenol) 650 mg Q6HR PRN PO FEVER > 100.4 Last administered on 20:58; Start 04/01/17 at 20:45 Clonidine (Catapres) 0.1 mg ONCE ONCE PO Last administered on 04/01/17 20:58 ; Start 04/01/17 at 20:45; Stop 04/01/17 at 20:46; Status DC Acetaminophen (Tylenol) 650 mg ONCE ONCE PO ; Start 04/01/17 at 21:00; Stop at 21:04; Status DC Clonidine (Catapres) 0.1 mg ONCE ONCE PO Last administered on 04/01/17 22:58 ; Start 04/01/17 at 22:45; Stop 04/01/17 at 22:46; Status DC A/P Assessment and Plan A/P sepsis due to bilateral upper extremity wound infection with cellulitis. Continue IV antibiotics and follow-up blood culture. continue pain control. Rhabdomyolysis secondary to crack cocaine use. improved- Continue IV hydration. Patient counseled regarding cocaine use Hypokalemia. will replace. Normocytic normochromic anemia. No gross bleeding. Hemoccult stools pending. Needs colonoscopy outpatient Mild hyponatremia. Asymptomatic. Monitor Transaminitis with history of hepatitis C DVT prophylaxis with SCD and early ambulation Surekha Esquivel MD Apr 02, 2017 11:12
[2017-04-02] MEDS ORDERED: Vancomycin Consult Pharmacy 1 EA OTHER SCH (11:15)
[2017-04-02] MEDS ORDERED: VANCOMYCIN INJ 1,000 MG in SODIUM CHLOR 0.9% 250 ML INJ 250 ML IV ONE (11:15)
[2017-04-02] MEDS ORDERED: POTASSIUM CHLORIDE 10 MEQ CONTROLLED RELEASE TAB PO ONE ×2 (12:00→15:00)
--- NOTE | 2017-04-02 13:29 | PD.ID.CON ---
History of Present Illness Service ID Consult Requested By Dr Ledesma Reason for Consult cellulitis Primary Care Physician No Primary Care Physician Diagnoses: History of Present Illness 61yo female developped itching itching on b/l forearms and the L forarm became edematous, painful and red Some redness nd minimal swelling also affected R UE She presented 2 days ago with worsning pain, redmness and swelling and fever up to 101.7 She was placed on clindamycin, later was switched to vancomycin and cefepime Review of Systems Except as stated in HPI: all other systems reviewed are Neg Past Family Social History Allergies: Coded Allergies: No Known Allergies (Verified , 04/01/17) Past Medical History HCV Past Surgical History hysterectomy appendectomy Active Ordered Medications Medications where reviewed in EMR Antibiotics Include: vancomycin and zosyn Family History diabetes Social History occ ETOH + tobacco very remove IVDU > 40 yrs agfo + crack coccain use Physical Exam Vital Signs Vital Signs Date Time Temp Pulse Resp B/P (MAP) Pulse Ox O2 Delivery O2 Flow Rate FiO2 04/02/17 12:00 97.7 77 20 115/59 (77) 98 04/02/17 10:55 96 04/02/17 08:00 97.7 77 20 115/59 (77) 98 04/02/17 04:00 98.6 71 16 120/56 (77) 98 04/02/17 02:08 Room Air 04/02/17 01:48 97.5 68 18 134/59 (84) 99 04/01/17 23:32 100.3 84 17 137/66 (89) 99 04/01/17 22:41 186/72 (110) 04/01/17 22:01 100.7 86 17 181/75 (110) 98 04/01/17 20:55 190/87 (121) 04/01/17 20:16 101.1 96 18 192/74 (113) 97 04/01/17 16:00 100.0 95 20 155/88 (110) 97 Physical Exam CONSTITUTIONAL/GENERAL: This is an adequately nourished patient, in no apparent distress. TUBES/LINES/DRAINS: SKIN: No jaundice, rashes, or lesions. Skin temperature appropriate. Not diaphoretic. HEAD: Atraumatic. Normocephalic. EYES: Pupils equal and round and reactive. Extraocular motions intact. No scleral icterus. No injection or drainage. Fundi not examined. ENT: Hearing grossly normal. Nose without bleeding or purulent drainage. Throat without visible erythema, exudates, masses, or lesions. NECK: Trachea midline. Supple, nontender. No palpable thyroid enlargement or nodularity. CARDIOVASCULAR: Regular rate and rhythm without murmurs, gallops, or rubs. No JVD. Peripheral pulses symmetric. RESPIRATORY/CHEST: Symmetric, unlabored respirations. Clear to auscultation. Breath sounds equal bilaterally. No wheezes, rales, or rhonchi. GASTROINTESTINAL: Abdomen soft, non-tender, nondistended. No hepato-splenomegaly , or palpable masses. No guarding. Bowel sounds present. MUSCULOSKELETAL: Extremities without clubbing, cyanosis, LUE is edematoux (1.2-2 X bigger than contralateral), involving forerm and upper arm.; its erythematoucs and has bright red discoloration RU E with excoriated rash and minimal edema LYMPHATICS: No palpable cervical axilla or supraclavicular adenopathy. NEUROLOGICAL: Awake and alert. Motor and sensory grossly within normal limits. Follows commands. Clear speech. Moves all extremities. PSYCHIATRIC: No obvious anxiety/depression. no apparent hallucinations or other psychotic thought process. Laboratory Laboratory Tests Test 04/02/17 06:19 04/02/17 07:01 Blood Urea Nitrogen 7 Creatinine 0.58 Random Glucose 83 Total Protein 6.1 Calcium Level 7.1 Sodium Level 132 Potassium Level 3.2 Chloride Level 103 Carbon Dioxide Level 20.4 Anion Gap 9 Estimat Glomerular Filtration Rate 105 Protein Corrected Calcium 7.6 Iron Level 14 Total Iron Binding Capacity 343 Percent Iron Saturation 4.1 Ferritin 27 Total Creatine Kinase 332 Creatine Kinase MB 2.9 Creatine Kinase MB % 0.9 White Blood Count 5.3 Red Blood Count 2.81 Hemoglobin 8.3 Hematocrit 25.3 Mean Corpuscular Volume 90.2 Mean Corpuscular Hemoglobin 29.7 Mean Corpuscular Hemoglobin Concent 32.9 Red Cell Distribution Width 16.1 Platelet Count 179 Mean Platelet Volume 8.9 Neutrophils (%) (Auto) 61.0 Lymphocytes (%) (Auto) 23.8 Monocytes (%) (Auto) 10.5 Eosinophils (%) (Auto) 4.3 Basophils (%) (Auto) 0.4 Neutrophils # (Auto) 3.2 Lymphocytes # (Auto) 1.3 Monocytes # (Auto) 0.6 Eosinophils # (Auto) 0.2 Basophils # (Auto) 0.0 CBC Comment DIFF FINAL Differential Comment Date/Time Source Procedure Growth Status 03/31/17 23:05 Blood Peripheral Aerobic Blood Culture - Preliminary NO GROWTH IN 1 DAY Resulted 03/31/17 23:05 Blood Peripheral Anaerobic Blood Culture - Preliminary NO GROWTH IN 1 DAY Resulted 04/02/17 13:00 Stool Stool Stool Occult Blood (DARLINE) Pending Received Result Diagram: 04/02/17 0701 04/02/17 0619 Assessment and Plan Assessment and Plan LUE cellulitis, likley strep REC'D cont zosyn cont vancomycin for now fu blood clx dc cefepime Jessica Bowles MD Apr 02, 2017 13:29
[2017-04-02] MEDS: PIPERACIL-TAZO 3.375 GM PREMIX 50 ML IV SCH ×2 (13:39→18:02)
[2017-04-02] MEDS: VANCOMYCIN 1,000 MG/NS 250 ML IV SCH ×2 (14:48)
[2017-04-03] VITALS (8 sets, daily range): BP systolic 140–169; BP diastolic 64–91; PULSE 70–86; RESP 16–18; TEMP 98.5–99.1; O2SAT 95–98
[2017-04-03] MEDS: PIPERACIL-TAZO 3.375 GM PREMIX 50 ML IV SCH ×4 (00:23→18:18)
[2017-04-03] MEDS: HYDROmorphone HCL 2 MG TAB PO PRN ×4 (00:48→22:36)
[2017-04-03] MEDS: VANCOMYCIN 1,000 MG/NS 250 ML IV SCH ×4 (00:48→14:31)
[2017-04-03] MEDS: SODIUM CHLOR 0.9% 1000 ML INJ 1,000 ML IV SCH ×3 (03:50→23:50)
[2017-04-03 07:53] LABS: HEMATOCRIT 26.1 % (35.0-46.0)
[2017-04-03] MEDS: DOCUSATE SODIUM 50 MG/SENNA 8.6 MG TAB PO SCH ×2 (09:00→21:00)
[2017-04-03] MEDS: MORPHINE SULFATE 4 MG/ML INJ IV PRN ×2 (09:36→18:19)
--- NOTE | 2017-04-03 10:54 | HHI.PR ---
Subjective Remarks looks more comfortable today. no fever. no new complaints. Objective Vitals Vital Signs Date Time Temp Pulse Resp B/P (MAP) Pulse Ox O2 Delivery O2 Flow Rate FiO2 04/03/17 08:07 98.7 70 16 142/66 (91) 97 04/03/17 03:20 98.7 70 16 146/71 (96) 96 04/03/17 02:20 142/72 (95) 04/03/17 01:48 20 04/03/17 00:25 Room Air 04/03/17 00:25 98.7 82 16 169/75 (106) 97 04/02/17 20:30 Room Air 04/02/17 20:30 98.9 86 16 153/66 (95) 97 04/02/17 16:00 98.5 81 20 151/60 (90) 99 04/02/17 12:00 97.7 77 20 115/59 (77) 98 04/02/17 10:55 96 I/O 04/02/17 04/02/17 04/02/17 04/03/17 04/03/17 04/03/17 06:59 14:59 22:59 06:59 14:59 22:59 Intake Total 120 ml 154 ml 1657 ml 1680 ml Output Total 400 ml 1000 ml Balance 120 ml 154 ml 1257 ml 680 ml Intake Oral 120 ml 480 ml 480 ml IV Total 154 ml 1177 ml 1200 ml Output Urine Total 400 ml 1000 ml # Voids 1 # Bowel Movements 0 1 0 Result Diagram: 04/03/17 0719 04/02/17 0619 Objective Remarks GENERAL: This is a well-nourished, well-developed patient, in no apparent distress. CARDIOVASCULAR: Regular rate and regular rhythm without murmurs, gallops, or rubs. RESPIRATORY: Clear to auscultation. Breath sounds equal bilaterally. No wheezes , rales, or rhonchi. GASTROINTESTINAL: Abdomen soft, non-tender, nondistended. Normal, active bowel sounds MUSCULOSKELETAL: Extremities without clubbing, cyanosis, or edema. NEURO: Alert & Oriented x4 to person, place, time, situation. Moves all ext x4 skin; erythema noted over both upper extremities Medications and IVs Current Medications Acetaminophen (Tylenol) 650 mg ONCE ONCE PO Last administered on 04/01/17t 00: 10; Start 03/31/17 at 23:30; Stop 03/31/17 at 23:31; Status DC Acetaminophen/ Hydrocodone Bitart ([place] 5-325 Mg) 1 tab ONCE ONCE PO Last administered on 04/01/17 00:10; Start 03/31/17 at 23:30; Stop 03/31/17 at 23:31 ; Status DC Ketorolac Tromethamine (Toradol Inj) 30 mg ONCE ONCE IVP Last administered on 04/01/17 00:10; Start 03/31/17 at 23:30; Stop 03/31/17 at 23:31; Status DC Clindamycin Phosphate 600 mg/ Sodium Chloride 104 ml @ 200 mls/hr ONCE ONCE IV Last administered on 04/01/17 00:10; Start 03/31/17 at 23:30; Stop at 00:01; Status DC Tetanus/ Diphtheria Toxoids (Tetanus/ Diphtheria Tox Adult) 0.5 ml ONCE ONCE IM Last administered on 04/01/17 00:09; Start 03/31/17 at 23:30; Stop 03/31/17 at 23:31; Status DC Sodium Chloride 1,000 ml @ 999 mls/hr BOLUS ONCE IV Last administered on 04/01 00:10; Start 03/31/17 at 23:30; Stop 04/01/17 at 00:30; Status DC Sodium Chloride 1,000 ml @ 999 mls/hr BOLUS ONCE IV Last administered on 04/01 01:29; Start 04/01/17 at 01:30; Stop 04/01/17 at 02:30; Status DC Potassium Chloride (KCl) 40 meq ONCE ONCE PO Last administered on 04/01/17 01 :29; Start 04/01/17 at 01:30; Stop 04/01/17 at 01:31; Status DC Sodium Chloride (NS Flush) 2 ml UNSCH PRN IV FLUSH FLUSH AFTER USING IV ACCESS ; Start 04/01/17 at 01:45 Sodium Chloride (NS Flush) 2 ml BID IV FLUSH Last administered on 04/02/17 20: 54; Start 04/01/17 at 09:00 Clindamycin Phosphate 600 mg/ Sodium Chloride 104 ml @ 208 mls/hr Q6H IV Last administered on 04/02/17 12:52; Start 04/01/17 at 06:00; Stop 04/02/17 at 11:15 ; Status DC Sodium Chloride 1,000 ml @ 100 mls/hr Q10H IV Last administered on 04/02/17 17:50; Start 04/01/17 at 01:50 Acetaminophen (Tylenol) 650 mg Q4H PRN PO TEMP > 100.4; Start 04/01/17 at 02:00 ; Stop 04/01/17 at 20:39; Status DC Ondansetron HCl (Zofran Inj) 4 mg Q6H PRN IVP NAUSEA OR VOMITING; Start at 02:00 Ketorolac Tromethamine (Toradol Inj) 15 mg Q6H PRN IVP Pain 3-5; if unable to take PO; Start 04/01/17 at 02:00; Stop 04/06/17 at 01:59 Ketorolac Tromethamine (Toradol Inj) 30 mg Q6H PRN IVP Pain 6-10;if unable to take PO; Start 04/01/17 at 02:00; Stop 04/06/17 at 01:59 Morphine Sulfate (Morphine Inj) 2 mg Q3H PRN IV BREAKTHROUGH PAIN Last administered on 04/03/17 09:36; Start 04/01/17 at 02:00 Hydromorphone HCl (Dilaudid) 1 mg Q4H PRN PO PAIN SCALE 3 TO 5 Last administered on 04/01/17 03:21; Start 04/01/17 at 02:00 Hydromorphone HCl (Dilaudid) 2 mg Q4H PRN PO PAIN SCALE 6 TO 10 Last administered on 04/03/17 08:45; Start 04/01/17 at 02:00 Naloxone HCl (Narcan Inj) 0.4 mg UNSCH PRN IV SEE LABEL COMMENTS; Start at 02:00 Senna/Docusate Sodium ([place]-Colace) 1 tab BID PO Last administered on 20:54; Start 04/01/17 at 09:00 Magnesium Hydroxide (Milk Of Magnesia Liq) 30 ml Q12H PRN PO MILD - MODERATE CONSTIPATION; Start 04/01/17 at 02:00 Sennosides (Senokot) 17.2 mg Q12H PRN PO MODERATE - SEVERE CONSTIPATION; Start 04/01/17 at 02:00 Lactulose (Lactulose Liq) 30 ml DAILY PRN PO SEVERE CONSITIPATION; Start at 02:00 Acetaminophen (Tylenol) 650 mg Q6HR PRN PO FEVER > 100.4 Last administered on 20:58; Start 04/01/17 at 20:45 Clonidine (Catapres) 0.1 mg ONCE ONCE PO Last administered on 04/01/17 20:58 ; Start 04/01/17 at 20:45; Stop 04/01/17 at 20:46; Status DC Acetaminophen (Tylenol) 650 mg ONCE ONCE PO ; Start 04/01/17 at 21:00; Stop at 21:04; Status DC Clonidine (Catapres) 0.1 mg ONCE ONCE PO Last administered on 04/01/17 22:58 ; Start 04/01/17 at 22:45; Stop 04/01/17 at 22:46; Status DC Vancomycin HCl 1000 mg/Sodium Chloride 250 ml @ 250 mls/hr ONCE ONCE IV ; Start 04/02/17 at 11:15; Stop 04/02/17 at 12:14; Status UNV Pharmacy Profile Note 0 ml @ 0 mls/hr UNSCH OTHER ; Start 04/02/17 at 11:15 Piperacillin Sod/ Tazobactam Sod 50 ml @ 100 mls/hr Q6H IV Last administered on 04/03/17 05:39; Start 04/02/17 at 13:00 Potassium Chloride (KCl) 30 meq ONCE ONCE PO Last administered on 04/02/17 12 :52; Start 04/02/17 at 12:00; Stop 04/02/17 at 12:01; Status DC Potassium Chloride (KCl) 30 meq ONCE ONCE PO Last administered on 04/02/17 14 :48; Start 04/02/17 at 15:00; Stop 04/02/17 at 15:01; Status DC Vancomycin HCl 1000 mg/Sodium Chloride 250 ml @ 250 mls/hr Q12H IV Last administered on 04/03/17 00:48; Start 04/02/17 at 14:00 Miscellaneous Information SPECIFIC LAB TO BE DRAWN:VANCOMYCIN TROUGH DATE TO... ONCE ONCE .XX ; Start 04/04/17 at 01:45; Stop 04/04/17 at 01:46 A/P Assessment and Plan A/P sepsis due to bilateral upper extremity wound infection with cellulitis. Continue IV antibiotics and follow-up blood culture. continue pain control. ID consult appreciated. Rhabdomyolysis secondary to crack cocaine use. improved- Continue IV hydration. Patient counseled regarding cocaine use Hypokalemia. replaced. Normocytic normochromic anemia. No gross bleeding. Hemoccult stools negative. Needs colonoscopy outpatient- Mild hyponatremia. Asymptomatic. Monitor Transaminitis with history of hepatitis C DVT prophylaxis with SCD and early ambulation Surekha Esquivel MD Apr 03, 2017 10:53
[2017-04-03] MEDS: SODIUM CHLORIDE 0.9% FLUSH 10 ML FLUSH IV FLUSH SCH ×2 (18:24→21:00)
[2017-04-04] VITALS (8 sets, daily range): BP systolic 126–186; BP diastolic 58–96; PULSE 65–81; RESP 16–18; TEMP 98.2–99.6; O2SAT 97–100
[2017-04-04] MEDS: PIPERACIL-TAZO 3.375 GM PREMIX 50 ML IV SCH ×4 (01:42→22:14)
[2017-04-04] MEDS ORDERED: PHARMACY ORDERED LAB ONE (01:45)
[2017-04-04] MEDS: VANCOMYCIN 1,000 MG/NS 250 ML IV SCH ×4 (02:35→14:05)
[2017-04-04] MEDS: HYDROmorphone HCL 2 MG TAB PO PRN ×2 (05:31→11:40)
[2017-04-04] MEDS: MORPHINE SULFATE 4 MG/ML INJ IV PRN (05:55)
[2017-04-04 07:26] LABS: BICARBONATE 22.5 MEQ/L (21.0-32.0); POTASSIUM 3.9 MEQ/L (3.5-5.1)
[2017-04-04] MEDS: SODIUM CHLORIDE 0.9% FLUSH 10 ML FLUSH IV FLUSH SCH ×2 (09:00→21:00)
[2017-04-04] MEDS: DOCUSATE SODIUM 50 MG/SENNA 8.6 MG TAB PO SCH ×2 (09:00→21:00)
[2017-04-04] MEDS: SODIUM CHLOR 0.9% 1000 ML INJ 1,000 ML IV SCH ×2 (09:04→22:11)
--- NOTE | 2017-04-04 12:02 | HHI.PR ---
Subjective Remarks resting comfortably with no distress. remains afebrile. pain seems to be controlled. d/w the RN. Objective Vitals Vital Signs Date Time Temp Pulse Resp B/P (MAP) Pulse Ox O2 Delivery O2 Flow Rate FiO2 04/04/17 09:01 98 04/04/17 08:00 98.4 65 18 178/83 (114) 98 04/04/17 07:48 Room Air 04/04/17 05:08 98.2 65 16 162/77 (105) 98 04/03/17 23:18 98.7 78 16 152/65 (94) 98 04/03/17 21:17 99.1 86 18 159/67 (97) 96 04/03/17 20:00 Room Air 04/03/17 16:10 98.5 73 16 163/91 (115) 98 04/03/17 12:07 98.5 72 16 140/64 (89) 95 I/O 04/03/17 04/03/17 04/03/17 04/04/17 04/04/17 04/04/17 07:00 15:00 23:00 07:00 15:00 23:00 Intake Total 1680 ml 530 ml 1558 ml 600 ml Output Total 1000 ml 900 ml 1950 ml Balance 680 ml -370 ml 1558 ml -1350 ml Intake Oral 480 ml 480 ml 600 ml IV Total 1200 ml 50 ml 1558 ml Output Urine Total 1000 ml 900 ml 1950 ml # Bowel Movements 0 2 0 Result Diagram: 04/03/17 0719 04/04/17 0540 Objective Remarks GENERAL: This is a well-nourished, well-developed patient, in no apparent distress. CARDIOVASCULAR: Regular rate and regular rhythm without murmurs, gallops, or rubs. RESPIRATORY: Clear to auscultation. Breath sounds equal bilaterally. No wheezes , rales, or rhonchi. GASTROINTESTINAL: Abdomen soft, non-tender, nondistended. Normal, active bowel sounds MUSCULOSKELETAL: Extremities without clubbing, cyanosis, or edema. NEURO: Alert & Oriented x4 to person, place, time, situation. Moves all ext x4 skin; erythema noted over both upper extremities Medications and IVs Current Medications Acetaminophen (Tylenol) 650 mg ONCE ONCE PO Last administered on 04/01/17t 00: 10; Start 03/31/17 at 23:30; Stop 03/31/17 at 23:31; Status DC Acetaminophen/ Hydrocodone Bitart ([place] 5-325 Mg) 1 tab ONCE ONCE PO Last administered on 04/01/17 00:10; Start 03/31/17 at 23:30; Stop 03/31/17 at 23:31 ; Status DC Ketorolac Tromethamine (Toradol Inj) 30 mg ONCE ONCE IVP Last administered on 04/01/17 00:10; Start 03/31/17 at 23:30; Stop 03/31/17 at 23:31; Status DC Clindamycin Phosphate 600 mg/ Sodium Chloride 104 ml @ 200 mls/hr ONCE ONCE IV Last administered on 04/01/17 00:10; Start 03/31/17 at 23:30; Stop at 00:01; Status DC Tetanus/ Diphtheria Toxoids (Tetanus/ Diphtheria Tox Adult) 0.5 ml ONCE ONCE IM Last administered on 04/01/17 00:09; Start 03/31/17 at 23:30; Stop 03/31/17 at 23:31; Status DC Sodium Chloride 1,000 ml @ 999 mls/hr BOLUS ONCE IV Last administered on 04/01 00:10; Start 03/31/17 at 23:30; Stop 04/01/17 at 00:30; Status DC Sodium Chloride 1,000 ml @ 999 mls/hr BOLUS ONCE IV Last administered on 04/01 01:29; Start 04/01/17 at 01:30; Stop 04/01/17 at 02:30; Status DC Potassium Chloride (KCl) 40 meq ONCE ONCE PO Last administered on 04/01/17 01 :29; Start 04/01/17 at 01:30; Stop 04/01/17 at 01:31; Status DC Sodium Chloride (NS Flush) 2 ml UNSCH PRN IV FLUSH FLUSH AFTER USING IV ACCESS ; Start 04/01/17 at 01:45 Sodium Chloride (NS Flush) 2 ml BID IV FLUSH Last administered on 04/03/17 18: 24; Start 04/01/17 at 09:00 Clindamycin Phosphate 600 mg/ Sodium Chloride 104 ml @ 208 mls/hr Q6H IV Last administered on 04/02/17 12:52; Start 04/01/17 at 06:00; Stop 04/02/17 at 11:15 ; Status DC Sodium Chloride 1,000 ml @ 100 mls/hr Q10H IV Last administered on 04/03/17 23:50; Start 04/01/17 at 01:50 Acetaminophen (Tylenol) 650 mg Q4H PRN PO TEMP > 100.4; Start 04/01/17 at 02:00 ; Stop 04/01/17 at 20:39; Status DC Ondansetron HCl (Zofran Inj) 4 mg Q6H PRN IVP NAUSEA OR VOMITING; Start at 02:00 Ketorolac Tromethamine (Toradol Inj) 15 mg Q6H PRN IVP Pain 3-5; if unable to take PO; Start 04/01/17 at 02:00; Stop 04/06/17 at 01:59 Ketorolac Tromethamine (Toradol Inj) 30 mg Q6H PRN IVP Pain 6-10;if unable to take PO; Start 04/01/17 at 02:00; Stop 04/06/17 at 01:59 Morphine Sulfate (Morphine Inj) 2 mg Q3H PRN IV BREAKTHROUGH PAIN Last administered on 04/04/17 05:55; Start 04/01/17 at 02:00 Hydromorphone HCl (Dilaudid) 1 mg Q4H PRN PO PAIN SCALE 3 TO 5 Last administered on 04/01/17 03:21; Start 04/01/17 at 02:00 Hydromorphone HCl (Dilaudid) 2 mg Q4H PRN PO PAIN SCALE 6 TO 10 Last administered on 04/04/17 11:40; Start 04/01/17 at 02:00 Naloxone HCl (Narcan Inj) 0.4 mg UNSCH PRN IV SEE LABEL COMMENTS; Start at 02:00 Senna/Docusate Sodium (Eleonora-Colace) 1 tab BID PO Last administered on 09:00; Start 04/01/17 at 09:00 Magnesium Hydroxide (Milk Of Magnesia Liq) 30 ml Q12H PRN PO MILD - MODERATE CONSTIPATION; Start 04/01/17 at 02:00 Sennosides (Senokot) 17.2 mg Q12H PRN PO MODERATE - SEVERE CONSTIPATION; Start 04/01/17 at 02:00 Lactulose (Lactulose Liq) 30 ml DAILY PRN PO SEVERE CONSITIPATION; Start at 02:00 Acetaminophen (Tylenol) 650 mg Q6HR PRN PO FEVER > 100.4 Last administered on 20:58; Start 04/01/17 at 20:45 Clonidine (Catapres) 0.1 mg ONCE ONCE PO Last administered on 04/01/17 20:58 ; Start 04/01/17 at 20:45; Stop 04/01/17 at 20:46; Status DC Acetaminophen (Tylenol) 650 mg ONCE ONCE PO Last administered on 04/03/17 22: 42; Start 04/01/17 at 21:00; Stop 04/01/17 at 21:04; Status DC Clonidine (Catapres) 0.1 mg ONCE ONCE PO Last administered on 04/01/17 22:58 ; Start 04/01/17 at 22:45; Stop 04/01/17 at 22:46; Status DC Vancomycin HCl 1000 mg/Sodium Chloride 250 ml @ 250 mls/hr ONCE ONCE IV ; Start 04/02/17 at 11:15; Stop 04/02/17 at 12:14; Status UNV Pharmacy Profile Note 0 ml @ 0 mls/hr UNSCH OTHER ; Start 04/02/17 at 11:15 Piperacillin Sod/ Tazobactam Sod 50 ml @ 100 mls/hr Q6H IV Last administered on 04/04/17 05:32; Start 04/02/17 at 13:00 Potassium Chloride (KCl) 30 meq ONCE ONCE PO Last administered on 04/02/17 12 :52; Start 04/02/17 at 12:00; Stop 04/02/17 at 12:01; Status DC Potassium Chloride (KCl) 30 meq ONCE ONCE PO Last administered on 04/02/17 14 :48; Start 04/02/17 at 15:00; Stop 04/02/17 at 15:01; Status DC Vancomycin HCl 1000 mg/Sodium Chloride 250 ml @ 250 mls/hr Q12H IV Last administered on 04/04/17 02:35; Start 04/02/17 at 14:00 Miscellaneous Information SPECIFIC LAB TO BE DRAWN:VANCOMYCIN TROUGH DATE TO... ONCE ONCE .XX Last administered on 8/25/17at 02:22; Start 04/04/17 at 01:45; Stop 04/04/17 at 01:46; Status DC A/P Assessment and Plan A/P sepsis due to bilateral upper extremity wound infection with cellulitis. Continue IV antibiotics -blood cultures negative so far. continue pain control. ID following. Rhabdomyolysis secondary to crack cocaine use. improved- Continue IV hydration. Patient counseled regarding cocaine use Hypokalemia. replaced. Normocytic normochromic anemia. No gross bleeding. Hemoccult stools negative. Needs colonoscopy outpatient- Mild hyponatremia. Asymptomatic. Monitor Transaminitis with history of hepatitis C DVT prophylaxis with SCD and early ambulation Discharge Planning when cleared by ID. Surekha Esquivel MD Apr 04, 2017 12:02
[2017-04-04] MEDS: ACETAMINOPHEN/HYDROcodone 325 MG/7.5 MG TAB PO PRN (22:10)
[2017-04-05] MEDS: PIPERACIL-TAZO 3.375 GM PREMIX 50 ML IV SCH ×3 (01:47→16:09)
[2017-04-05] MEDS: VANCOMYCIN 1,000 MG/NS 250 ML IV SCH ×4 (03:05→15:15)
[2017-04-05] MEDS: ACETAMINOPHEN/HYDROcodone 325 MG/7.5 MG TAB PO PRN ×3 (04:29→21:42)
[2017-04-05] MEDS: SODIUM CHLOR 0.9% 1000 ML INJ 1,000 ML IV SCH (04:30)
[2017-04-05 05:15] VITALS: BP 152/67; PULSE 67; RESP 18; TEMP 97.8; O2SAT 98
[2017-04-05 08:00] VITALS: BP 136/63; PULSE 68; RESP 20; TEMP 98; O2SAT 98
[2017-04-05] MEDS: SODIUM CHLORIDE 0.9% FLUSH 10 ML FLUSH IV FLUSH SCH ×2 (08:13→21:42)
[2017-04-05] MEDS: DOCUSATE SODIUM 50 MG/SENNA 8.6 MG TAB PO SCH ×2 (08:13→21:00)
--- NOTE | 2017-04-05 11:31 | HHI.PR ---
Subjective Remarks f/u; cellulitis upper extremities resting comfortably with no distress. has mild pain to the arms. no fever. no new complaints. Objective Vitals Vital Signs Date Time Temp Pulse Resp B/P (MAP) Pulse Ox O2 Delivery O2 Flow Rate FiO2 04/05/17 08:31 Room Air 04/05/17 08:00 98.0 68 20 136/63 (87) 98 04/05/17 05:15 97.8 67 18 152/67 (95) 98 04/04/17 23:34 99.6 70 18 146/65 (92) 98 04/04/17 23:02 97 21 04/04/17 20:35 98.3 67 18 126/58 (80) 100 04/04/17 19:00 Room Air 04/04/17 16:00 98.5 78 18 170/80 (110) 98 04/04/17 12:00 98.6 81 18 186/96 (126) 98 I/O 04/04/17 04/04/17 04/04/17 04/05/17 04/05/17 04/05/17 07:00 15:00 23:00 07:00 15:00 23:00 Intake Total 600 ml 400 ml 960 ml 100 ml Output Total 1950 ml 2300 ml Balance -1350 ml 400 ml -1340 ml 100 ml Intake Oral 600 ml 960 ml IV Total 400 ml 100 ml Output Urine Total 1950 ml 2300 ml # Bowel Movements 0 0 Result Diagram: 04/03/17 0719 04/04/17 0540 Objective Remarks GENERAL: This is a well-nourished, well-developed patient, in no apparent distress. CARDIOVASCULAR: Regular rate and regular rhythm without murmurs, gallops, or rubs. RESPIRATORY: Clear to auscultation. Breath sounds equal bilaterally. No wheezes , rales, or rhonchi. GASTROINTESTINAL: Abdomen soft, non-tender, nondistended. Normal, active bowel sounds MUSCULOSKELETAL: Extremities without clubbing, cyanosis, or edema. NEURO: Alert & Oriented x4 to person, place, time, situation. Moves all ext x4 skin; erythema noted over both upper extremities Medications and IVs Current Medications Acetaminophen (Tylenol) 650 mg ONCE ONCE PO Last administered on 04/01/17t 00: 10; Start 03/31/17 at 23:30; Stop 03/31/17 at 23:31; Status DC Acetaminophen/ Hydrocodone Bitart ([place] 5-325 Mg) 1 tab ONCE ONCE PO Last administered on 04/01/17 00:10; Start 03/31/17 at 23:30; Stop 03/31/17 at 23:31 ; Status DC Ketorolac Tromethamine (Toradol Inj) 30 mg ONCE ONCE IVP Last administered on 04/01/17 00:10; Start 03/31/17 at 23:30; Stop 03/31/17 at 23:31; Status DC Clindamycin Phosphate 600 mg/ Sodium Chloride 104 ml @ 200 mls/hr ONCE ONCE IV Last administered on 04/01/17 00:10; Start 03/31/17 at 23:30; Stop at 00:01; Status DC Tetanus/ Diphtheria Toxoids (Tetanus/ Diphtheria Tox Adult) 0.5 ml ONCE ONCE IM Last administered on 04/01/17 00:09; Start 03/31/17 at 23:30; Stop 03/31/17 at 23:31; Status DC Sodium Chloride 1,000 ml @ 999 mls/hr BOLUS ONCE IV Last administered on 04/01 00:10; Start 03/31/17 at 23:30; Stop 04/01/17 at 00:30; Status DC Sodium Chloride 1,000 ml @ 999 mls/hr BOLUS ONCE IV Last administered on 04/01 01:29; Start 04/01/17 at 01:30; Stop 04/01/17 at 02:30; Status DC Potassium Chloride (KCl) 40 meq ONCE ONCE PO Last administered on 04/01/17 01 :29; Start 04/01/17 at 01:30; Stop 04/01/17 at 01:31; Status DC Sodium Chloride (NS Flush) 2 ml UNSCH PRN IV FLUSH FLUSH AFTER USING IV ACCESS ; Start 04/01/17 at 01:45 Sodium Chloride (NS Flush) 2 ml BID IV FLUSH Last administered on 04/03/17 18: 24; Start 04/01/17 at 09:00 Clindamycin Phosphate 600 mg/ Sodium Chloride 104 ml @ 208 mls/hr Q6H IV Last administered on 04/02/17 12:52; Start 04/01/17 at 06:00; Stop 04/02/17 at 11:15 ; Status DC Sodium Chloride 1,000 ml @ 100 mls/hr Q10H IV Last administered on 04/05/17 04:30; Start 04/01/17 at 01:50 Acetaminophen (Tylenol) 650 mg Q4H PRN PO TEMP > 100.4; Start 04/01/17 at 02:00 ; Stop 04/01/17 at 20:39; Status DC Ondansetron HCl (Zofran Inj) 4 mg Q6H PRN IVP NAUSEA OR VOMITING; Start at 02:00 Ketorolac Tromethamine (Toradol Inj) 15 mg Q6H PRN IVP Pain 3-5; if unable to take PO; Start 04/01/17 at 02:00; Stop 04/06/17 at 01:59 Ketorolac Tromethamine (Toradol Inj) 30 mg Q6H PRN IVP Pain 6-10;if unable to take PO; Start 04/01/17 at 02:00; Stop 04/06/17 at 01:59 Morphine Sulfate (Morphine Inj) 2 mg Q3H PRN IV BREAKTHROUGH PAIN Last administered on 04/04/17 05:55; Start 04/01/17 at 02:00 Hydromorphone HCl (Dilaudid) 1 mg Q4H PRN PO PAIN SCALE 3 TO 5 Last administered on 04/01/17 03:21; Start 04/01/17 at 02:00; Stop 04/04/17 at 12:01 ; Status DC Hydromorphone HCl (Dilaudid) 2 mg Q4H PRN PO PAIN SCALE 6 TO 10 Last administered on 04/04/17 11:40; Start 04/01/17 at 02:00; Stop 04/04/17 at 12:01 ; Status DC Naloxone HCl (Narcan Inj) 0.4 mg UNSCH PRN IV SEE LABEL COMMENTS; Start at 02:00 Senna/Docusate Sodium (Eleonora-Colace) 1 tab BID PO Last administered on 09:00; Start 04/01/17 at 09:00 Magnesium Hydroxide (Milk Of Magnesia Liq) 30 ml Q12H PRN PO MILD - MODERATE CONSTIPATION; Start 04/01/17 at 02:00 Sennosides (Senokot) 17.2 mg Q12H PRN PO MODERATE - SEVERE CONSTIPATION; Start 04/01/17 at 02:00 Lactulose (Lactulose Liq) 30 ml DAILY PRN PO SEVERE CONSITIPATION; Start at 02:00 Acetaminophen (Tylenol) 650 mg Q6HR PRN PO FEVER > 100.4 Last administered on 20:58; Start 04/01/17 at 20:45 Clonidine (Catapres) 0.1 mg ONCE ONCE PO Last administered on 04/01/17 20:58 ; Start 04/01/17 at 20:45; Stop 04/01/17 at 20:46; Status DC Acetaminophen (Tylenol) 650 mg ONCE ONCE PO Last administered on 04/03/17 22: 42; Start 04/01/17 at 21:00; Stop 04/01/17 at 21:04; Status DC Clonidine (Catapres) 0.1 mg ONCE ONCE PO Last administered on 04/01/17 22:58 ; Start 04/01/17 at 22:45; Stop 04/01/17 at 22:46; Status DC Vancomycin HCl 1000 mg/Sodium Chloride 250 ml @ 250 mls/hr ONCE ONCE IV ; Start 04/02/17 at 11:15; Stop 04/02/17 at 12:14; Status UNV Pharmacy Profile Note 0 ml @ 0 mls/hr UNSCH OTHER ; Start 04/02/17 at 11:15 Piperacillin Sod/ Tazobactam Sod 50 ml @ 100 mls/hr Q6H IV Last administered on 04/05/17 09:11; Start 04/02/17 at 13:00 Potassium Chloride (KCl) 30 meq ONCE ONCE PO Last administered on 04/02/17 12 :52; Start 04/02/17 at 12:00; Stop 04/02/17 at 12:01; Status DC Potassium Chloride (KCl) 30 meq ONCE ONCE PO Last administered on 04/02/17 14 :48; Start 04/02/17 at 15:00; Stop 04/02/17 at 15:01; Status DC Vancomycin HCl 1000 mg/Sodium Chloride 250 ml @ 250 mls/hr Q12H IV Last administered on 04/05/17 03:05; Start 04/02/17 at 14:00 Miscellaneous Information SPECIFIC LAB TO BE DRAWN:VANCOMYCIN TROUGH DATE TO... ONCE ONCE .XX Last administered on 04/04/17 02:22; Start 04/04/17 at 01:45; Stop 04/04/17 at 01:46; Status DC Acetaminophen/ Hydrocodone Bitart ([place] 7.5-325 Mg) 1 tab Q4H PRN PO PAIN 1-5 ; Start 04/04/17 at 12:00 Acetaminophen/ Hydrocodone Bitart ([place] 7.5-325 Mg) 2 tab Q4H PRN PO PAIN 6- 10 Last administered on 04/05/17 04:29; Start 04/04/17 at 12:00 Miscellaneous Information SPECIFIC LAB TO BE HARSHAD... ONCE ONCE .XX ; Start 04/06 at 13:45; Stop 04/06/17 at 13:46 A/P Assessment and Plan A/P sepsis due to bilateral upper extremity wound infection with cellulitis. Continue IV antibiotics; on Vanco and Zosyn -blood cultures negative so far. continue pain control. ID following. Rhabdomyolysis secondary to crack cocaine use. improved after IV hydration. Patient counseled regarding cocaine use Hypokalemia. replaced. Normocytic normochromic anemia. No gross bleeding. Hemoccult stools negative. Needs colonoscopy outpatient- Mild hyponatremia. Asymptomatic. Monitor Transaminitis with history of hepatitis C DVT prophylaxis with SCD and early ambulation Discharge Planning when cleared by ID. Surekha Esquivel MD Apr 05, 2017 11:31
[2017-04-05 12:00] VITALS: BP 145/80; PULSE 72; RESP 20; TEMP 97.3; O2SAT 98
[2017-04-05 14:26] VITALS: BP 165/92; PULSE 72; RESP 20; TEMP 97.4; O2SAT 100
--- NOTE | 2017-04-05 19:09 | HHI.IDPN ---
Subjective Subjective Remarks doing better co bl forearms itchin pain swelling L UE improved Antibiotics vanco, zosyn Allergies: Coded Allergies: No Known Allergies (Verified , 04/01/17) Objective . Vital Signs Date Time Temp Pulse Resp B/P (MAP) Pulse Ox O2 Delivery O2 Flow Rate FiO2 04/05/17 14:26 97.4 72 20 165/92 (116) 100 04/05/17 12:00 97.3 72 20 145/80 (101) 98 04/05/17 08:31 Room Air 04/05/17 08:00 98.0 68 20 136/63 (87) 98 04/05/17 05:15 97.8 67 18 152/67 (95) 98 04/04/17 23:34 99.6 70 18 146/65 (92) 98 04/04/17 23:02 97 21 04/04/17 20:35 98.3 67 18 126/58 (80) 100 04/05/17 04/05/17 04/06/17 14:59 22:59 06:59 Intake Total 1040 ml 650 ml Output Total 1100 ml Balance 1040 ml -450 ml Intake Oral 600 ml IV Total 1040 ml 50 ml Output Urine Total 1100 ml # Bowel Movements 1 . Laboratory Tests Test 04/04/17 05:40 Blood Urea Nitrogen 4 MG/DL Creatinine 0.53 MG/DL Random Glucose 99 MG/DL Calcium Level 7.8 MG/DL Sodium Level 134 MEQ/L Potassium Level 3.9 MEQ/L Chloride Level 105 MEQ/L Carbon Dioxide Level 22.5 MEQ/L Anion Gap 7 MEQ/L Estimat Glomerular Filtration Rate 117 ML/MIN Physical Exam CONSTITUTIONAL/GENERAL: This is an adequately nourished patient, in no apparent distress. TUBES/LINES/DRAINS: SKIN: No jaundice, rashes, or lesions. Skin temperature appropriate. Not diaphoretic. RESPIRATORY/CHEST: unlabored respirations. MUSCULOSKELETAL: Extremities without clubbing, cyanosis, LUE is much less edematouxs much less erythematous RU E with excoriated rash and minimal edema NEUROLOGICAL: Awake and alert. Motor and sensory grossly within normal limits. Follows commands. Clear speech. Moves all extremities. PSYCHIATRIC: No obvious anxiety/depression. no apparent hallucinations or other psychotic thought process. Assessment & Plan Remarks LUE cellulitis, likley strep Blood clx negastive - final REC'D dc zosyn dc vancomycin start ancef If cont to iimprove will transition to po Keflex upon dc Jessica Bowles MD Apr 05, 2017 19:09
[2017-04-05 20:00] VITALS: BP 154/88; PULSE 73; RESP 20; TEMP 98; O2SAT 96
[2017-04-05] MEDS: ceFAZolin 2 GM PREMIX 50 ML IV SCH (21:42)
[2017-04-05] MEDS: ONDANSETRON HCL 4 MG/2 ML VIAL IVP PRN (21:47)
[2017-04-06] VITALS: BP 162/93; PULSE 66; RESP 20; TEMP 98.4; O2SAT 97
[2017-04-06 04:00] VITALS: BP 135/61; PULSE 62; RESP 20; TEMP 98.4; O2SAT 98
[2017-04-06] MEDS: ceFAZolin 2 GM PREMIX 50 ML IV SCH ×3 (04:00→22:28)
[2017-04-06] MEDS: ONDANSETRON HCL 4 MG/2 ML VIAL IVP PRN (06:02)
[2017-04-06 08:00] VITALS: BP 164/77; PULSE 76; RESP 18; TEMP 98.9; O2SAT 96
[2017-04-06] MEDS: DOCUSATE SODIUM 50 MG/SENNA 8.6 MG TAB PO SCH ×2 (09:06→21:00)
[2017-04-06] MEDS: SODIUM CHLORIDE 0.9% FLUSH 10 ML FLUSH IV FLUSH SCH ×2 (09:06→22:28)
[2017-04-06] MEDS: ACETAMINOPHEN/HYDROcodone 325 MG/7.5 MG TAB PO PRN ×3 (09:07→22:29)
[2017-04-06 10:39] LABS: AUTOMATED NEUTROPHIL # 2.1 TH/MM3 (1.8-7.7); BASOPHIL % 0.8 % (0.0-2.0); EOSINOPHIL # 0.2 TH/MM3 (0-0.4); EOSINOPHIL % 3.7 % (0.0-4.0); HEMATOCRIT 27.9 % (35.0-46.0); HEMO FLAGS DIFF FINAL; LYMPH % 32.6 % (9.0-44.0); LYMPHOCYTE # 1.4 TH/MM3 (1.0-4.8); MEAN CELL VOLUME 90.1 FL (80.0-100.0); MEAN CORPUSCULAR HEMOGLOBIN 29.9 PG (27.0-34.0); MEAN CORPUSCULAR HGB CONC 33.2 % (32.0-36.0); MONO % 13.8 % (0.0-8.0); NEUT % 49.1 % (16.0-70.0); PLATELET COUNT 231 TH/MM3 (150-450); RED CELL DISTRIBUTION WIDTH 16.1 % (11.6-17.2); WHITE BLOOD COUNT 4.4 TH/MM3 (4.0-11.0)
--- NOTE | 2017-04-06 10:48 | HHI.PR ---
Subjective Remarks no fever or chills states left forearm swelling markedly less, no complains of pain, no diarrhea she denies any history of substance abuse to me Objective Vitals Vital Signs Date Time Temp Pulse Resp B/P (MAP) Pulse Ox O2 Delivery O2 Flow Rate FiO2 04/06/17 09:10 Room Air 04/06/17 08:00 98.9 76 18 164/77 (106) 96 04/06/17 04:00 98.4 62 20 135/61 (85) 98 04/06/17 00:00 Room Air 04/06/17 00:00 98.4 66 20 162/93 (116) 97 04/05/17 20:00 98.0 73 20 154/88 (110) 96 04/05/17 20:00 Room Air 04/05/17 14:26 97.4 72 20 165/92 (116) 100 04/05/17 12:00 97.3 72 20 145/80 (101) 98 I/O 04/05/17 04/05/17 04/05/17 04/06/17 04/06/17 04/06/17 07:00 15:00 23:00 07:00 15:00 23:00 Intake Total 960 ml 1040 ml 900 ml Output Total 2300 ml 1100 ml 1000 ml Balance -1340 ml 1040 ml -200 ml -1000 ml Intake Oral 960 ml 600 ml IV Total 1040 ml 300 ml Output Urine Total 2300 ml 1100 ml 950 ml Emesis 50 ml # Bowel Movements 0 1 0 Result Diagram: 04/06/17 0926 04/04/17 0540 Imaging awake and alert, oriented x 2, NAD anciteric lungs clear regular rhythm abdomen soft, nontender bilateral UE- forearm- with extensive dry, necrotic scabs, LUE with some swelling and surrounding erythema. good epripheral pulses LE no edema- no wounds no other skin involvements A/P Assessment and Plan 61 years old female Bilateral forearms cellulitis L > R with extensive dry scabs - ab switched to IV Ancef- 04/04 per ID - blood cultures negative x 4 days - get a wound care team nurse consult for recommendations - ? need debridement of this necrotic dry scabs Rhabdomyolysis - FF CK level- trending down -continue IVF Elevated LFTs- probably related to rhabdo -recheck LFTs Hypokalemia-improved. recheck today- pending Substance abuse- patient denies. counselled UP and ambulating Toby Brown MD Apr 06, 2017 10:48
[2017-04-06 11:05] LABS: ALT (GPT) 55 U/L (10-53); ANION GAP 9 MEQ/L (5-15); AST (GOT) 83 U/L (15-37); BICARBONATE 25.2 MEQ/L (21.0-32.0); BLOOD UREA NITROGEN 4 MG/DL (7-18); CHLORIDE 101 MEQ/L (98-107); GLOMERULAR FILTRATION RATE 103 ML/MIN (>89); POTASSIUM 3.8 MEQ/L (3.5-5.1); SODIUM (NA) 135 MEQ/L (136-145)
[2017-04-06 11:08] LABS: ALKALINE PHOSPHATASE 72 U/L (45-117); TOTAL BILIRUBIN ADULT 0.2 MG/DL (0.2-1.0)
[2017-04-06 12:00] VITALS: BP 178/74; PULSE 79; RESP 18; TEMP 98.6; O2SAT 97
[2017-04-06] MEDS ORDERED: PHARMACY ORDERED LAB ONE (13:45)
[2017-04-06 16:00] VITALS: BP 167/79; PULSE 66; RESP 18; TEMP 99; O2SAT 96
[2017-04-06 20:00] VITALS: BP 182/88; PULSE 70; RESP 20; TEMP 98.3; O2SAT 98
[2017-04-07] VITALS: BP 152/70; PULSE 69; RESP 20; TEMP 97.8; O2SAT 98
[2017-04-07 04:00] VITALS: BP 142/68; PULSE 58; RESP 20; TEMP 97.5; O2SAT 98
[2017-04-07] MEDS: ceFAZolin 2 GM PREMIX 50 ML IV SCH ×3 (04:27→22:29)
[2017-04-07] MEDS: ACETAMINOPHEN/HYDROcodone 325 MG/7.5 MG TAB PO PRN ×3 (04:28→22:29)
[2017-04-07 08:08] VITALS: BP 169/81; PULSE 61; RESP 18; TEMP 97.3; O2SAT 99
[2017-04-07] MEDS: SODIUM CHLORIDE 0.9% FLUSH 10 ML FLUSH IV FLUSH SCH ×2 (09:00→22:29)
[2017-04-07] MEDS: DOCUSATE SODIUM 50 MG/SENNA 8.6 MG TAB PO SCH ×2 (09:00→21:00)
[2017-04-07 12:08] VITALS: BP 128/60; PULSE 61; RESP 18; TEMP 98.3; O2SAT 97
--- NOTE | 2017-04-07 14:47 | PD.WCN.NOT ---
Wound Consult Description: Received consult from Doctor Brown for wound management of bilateral forearm- extensive dry scabbing Debridement Communicated with: RN Jocelin Kramer and Doctor Jamil Cabrera Recommendation: Please cleanse bilateral arms with soap and water and pat dry before applying antibiotic ointment as directed over scabs and leave open to air Additional Information: Patient seen on for evaluation of bilateral forearm wound management. Assessed patient with large scabs to R forearm measuring 20 cm x 4 cm and L forearm measuring 24cm x 7 cm. Scabs are dry intact and non draining. Periwound is without erythema, or induration. Left all scabs open to air.Patient is not complaining of pain or discomfort associated with scabs on bilateral arms. When asked, how wounds occurred? Patient replies,"They just started out really little and got larger" [facility] Apr 07, 2017 14:47
--- NOTE | 2017-04-07 15:15 | HHI.PR ---
Subjective Remarks Patient reports gradual improvement in bilateral arm cellulitis. No new complaints. Topical bacitracin ointment recommended by wound care nurse. Objective Vital Signs Date Time Temp Pulse Resp B/P (MAP) Pulse Ox O2 Delivery O2 Flow Rate FiO2 04/07/17 12:08 98.3 61 18 128/60 (82) 97 04/07/17 08:08 97.3 61 18 169/81 (110) 99 04/07/17 04:00 97.5 58 20 142/68 (92) 98 04/07/17 00:00 97.8 69 20 152/70 (97) 98 04/06/17 20:00 98.3 70 20 182/88 (119) 98 04/06/17 20:00 Room Air 04/06/17 16:00 99.0 66 18 167/79 (108) 96 I/O 04/06/17 04/06/17 04/06/17 04/07/17 04/07/17 04/07/17 07:00 15:00 23:00 07:00 15:00 23:00 Intake Total 50 ml 960 ml Output Total 1000 ml 1100 ml Balance -1000 ml 50 ml -140 ml Intake Oral 960 ml IV Total 50 ml Output Urine Total 950 ml 1100 ml Emesis 50 ml # Bowel Movements 0 1 Result Diagram: 04/06/1792504/06/17925 Objective Remarks GENERAL: NAD, A&Ox3 HEAD: Normocephalic. NECK: Supple, trachea midline. No lymphadenopathy. EYES: No scleral icterus. No injection or drainage. CARDIOVASCULAR: Regular rate and rhythm without murmurs, gallops, or rubs. RESPIRATORY: Breath sounds equal bilaterally. No accessory muscle use. GASTROINTESTINAL: Abdomen soft, non-tender, nondistended. MUSCULOSKELETAL: No cyanosis, or edema. SKIN: Warm and dry. Large dry scabs have bilateral dorsal surfaces of arms. NEURO: No focal neurological deficitis. A/P Problem List: (1) Rhabdomyolysis ICD Code: M62.82 - Rhabdomyolysis Status: Acute (2) Cellulitis ICD Code: L03.90 - Cellulitis, unspecified Status: Acute (3) Hypokalemia ICD Code: E87.6 - Hypokalemia Status: Acute (4) Elevated blood pressure ICD Code: R03.0 - Elevated blood pressure Status: Acute (5) Skin infection ICD Code: L08.9 - Skin infection Status: Acute Assessment and Plan Assessment and Plan 61 years old female admitted with bilateral forearm cellulitis Bilateral forearms cellulitis L > R Currently on Ancef ID following Plan to discharge patient on Keflex Possible discharge tomorrow Rhabdomyolysis Resolved Stop IV fluids Elevated LFTs Resolved No further follow-up Hypokalemia Resolved Monitor for recurrence Replaced with supplements as needed History of substance abuse Lifestyle choices with good outcomes recommended DVT prophylaxis Patient is ambulatory Discharge planning Possible discharge tomorrow Problem Qualifiers (1) Rhabdomyolysis: Qualified Codes: M62.82 - Rhabdomyolysis (2) Cellulitis: Qualified Codes: L03.119 - Cellulitis of unspecified part of limb Jamil Cabrera MD Apr 07, 2017 15:15
[2017-04-07 16:08] VITALS: BP 158/79; PULSE 68; RESP 18; TEMP 98.6; O2SAT 99
[2017-04-07 20:00] VITALS: BP 150/72; PULSE 62; RESP 16; TEMP 99.2; O2SAT 98
[2017-04-07] MEDS: BACITRACIN TOP OINT 15 GM TUBE TOPICAL SCH (22:29)
[2017-04-08] VITALS: BP 164/94; PULSE 72; RESP 19; TEMP 98.4; O2SAT 98
[2017-04-08 04:00] VITALS: BP 149/82; PULSE 64; RESP 16; TEMP 97.5; O2SAT 99
[2017-04-08] MEDS: ceFAZolin 2 GM PREMIX 50 ML IV SCH (04:27)
[2017-04-08] MEDS: ACETAMINOPHEN/HYDROcodone 325 MG/7.5 MG TAB PO PRN (04:27)
[2017-04-08 08:00] VITALS: BP 149/80; PULSE 61; RESP 18; TEMP 98.7; O2SAT 98
[2017-04-08] MEDS: DOCUSATE SODIUM 50 MG/SENNA 8.6 MG TAB PO SCH (09:00)
[2017-04-08] MEDS: SODIUM CHLORIDE 0.9% FLUSH 10 ML FLUSH IV FLUSH SCH (10:08)
[2017-04-08] MEDS: BACITRACIN TOP OINT 15 GM TUBE TOPICAL SCH (10:09)
[2017-04-08] MEDS ORDERED: LACTTAB8 PO (10:18)
[2017-04-08] MEDS ORDERED: BACI500O2 TOPICAL (10:18)
[2017-04-08] MEDS ORDERED: CEPH-460 PO (10:18)
[2017-04-08 12:00] VITALS: BP 132/55; PULSE 70; RESP 22; TEMP 98.3; O2SAT 99
--- NOTE | 2017-04-08 14:56 | HHI.DS ---
Discharge Summary Admission Date Apr 01, 2017 at 01:36 Discharge Date: Apr 08, 2017 Admitting Diagnosis cellulitis right upper extremity, rhabdomyolysis (1) Skin infection ICD Code: L08.9 - Skin infection Diagnosis: Principal Status: Acute Procedures None Brief History - From Admission This is a 61-year-old female with a history of hepatitis C. She is not a good historian. She presents to the emergency department because of bilateral upper extremity swelling, pain and erythema. She reports of chronic irritation of her extremities from insect bites for the past 6 months. Lately she noted swelling, erythema and pain affecting her upper extremities. No saltwater exposure. She also has subjective fevers and bodyaches admits to using crack cocaine about a week ago. History of remote IV drug use at age 17. She has been started on IV clindamycin in the emergency department. All other systems reviewed negative CBC/BMP: 04/06/17 0926 04/06/17 0926 Significant Findings Laboratory Tests Test 04/06/17 09:26 Red Blood Count 3.10 MIL/MM3 (4.00-5.30) Hemoglobin 9.3 GM/DL (11.6-15.3) Hematocrit 27.9 % (35.0-46.0) Monocytes (%) (Auto) 13.8 % (0.0-8.0) Blood Urea Nitrogen 4 MG/DL (7-18) Albumin 2.4 GM/DL (3.4-5.0) Calcium Level 8.2 MG/DL (8.5-10.1) Aspartate Amino Transf (AST/SGOT) 83 U/L (15-37) Alanine Aminotransferase (ALT/SGPT) 55 U/L (10-53) Sodium Level 135 MEQ/L (136-145) PE at Discharge GENERAL: This is a well-nourished, well-developed patient, in no apparent distress. CARDIOVASCULAR: Regular rate and regular rhythm without murmurs, gallops, or rubs. RESPIRATORY: Clear to auscultation. Breath sounds equal bilaterally. No wheezes , rales, or rhonchi. GASTROINTESTINAL: Abdomen soft, non-tender, nondistended. Normal, active bowel sounds MUSCULOSKELETAL: Extremities without clubbing, cyanosis, or edema. NEURO: Alert & Oriented x4 to person, place, time, situation. Moves all ext x4 skin; erythema noted over both upper extremities Hospital Course Mrs. Adamson is a 61-year-old female. She was admitted secondary to cellulitis of the bilateral forearms. Significant scabbing and edema and erythema are present. She's responded well to treatment on the hospital on IV antibiotics ( cefazolin). She's not improvement after medically stable for discharge to home. She will continue for 1 more week on Keflex. Probiotics given. Additionally she will use topical antibiotic ointment to help treat her scabs. Pt Condition on Discharge: Stable Discharge Disposition: Discharge Home Discharge Time: <= 30 minutes Discharge Instructions DIET: Follow Instructions for: As Tolerated, No Restrictions Activities you can perform: Regular-No Restrictions Follow up Referrals: PCP Follow-up - 2 Weeks New Medications: Cephalexin (Keflex) 500 Mg Capsule 500 MG PO TID for Infection, #21 CAP 0 Refills Lactobacillus Acidophilus (Lactobacillus Acidophilus) 1 Billion Cell Tab 1 TAB PO TIDAC for Nutritional Supplement, #30 TAB 0 Refills Bacitracin Topical (Bacitracin Topical) 500 Unit/Gm Oint 1 APPLIC TOPICAL Q12HR for Infection, #1 TUBE Jamil Cabrera MD Apr 08, 2017 14:56
== END 2017-04-08 11:57 | disposition home or self-care (01) | DRG 872 ==
LOC: NEPE 22:39 → NEDA 04-01 01:36 → OBSVTOIN 04-01 01:36 → NEDA 04-01 01:42 → UNDOADMOB 04-01 01:42 → NEPGCP 04-01 02:52 → N04B 04-02 01:50
PROVIDERS: ADMIT Hospitalist; ATTEND Hospitalist
DX: A41.9 Sepsis, unspecified organism (principal); M62.82 Rhabdomyolysis; L03.113 Cellulitis of right upper limb; L03.114 Cellulitis of left upper limb; E87.1 Hypo-osmolality and hyponatremia; D64.9 Anemia, unspecified; E87.6 Hypokalemia; I10 Essential (primary) hypertension; F14.90 Cocaine use, unspecified, uncomplicated; Z72.0 Tobacco use; W57.XXXA Bitten or stung by nonvenomous insect and other nonvenomous arthropods, initial encounter; Y92.9 Unspecified place or not applicable; B19.20 Unspecified viral hepatitis C without hepatic coma; Z90.710 Acquired absence of both cervix and uterus
CPT/HCPCS: 80048; 80053; 80202; 82272; 82550; 82552; 82728; 83540; 83550; 83605; 83735; 84155; 85014; 85018; 85025; 87040; 90471; 90714; 96365; 96375; J0690; J1885; J2270; J2405; J2543; J3370; J7030; J7050

== ENCOUNTER 2017-07-07 09:55 | Emergency (ER) | payer SELFPAY ==
[~2017-07-07] VITALS: Ht 162.6 cm; Wt 55.0 kg
[~2017-07-07 09:55] MED LIST changes: -ASPI325T PO; +BACI500O2 TOPICAL; +CEPH-460 PO; +LACTTAB8 PO; -Z.0.NO CURRENT MEDS
[2017-07-07 09:57] VITALS: BP 190/86; PULSE 89; RESP 12; TEMP 99.1; O2SAT 99
[2017-07-07] MEDS ORDERED: MUPI2OIN TOPICAL (10:40)
[2017-07-07] MEDS ORDERED: PERM5CRE TOPICAL (10:40)
--- NOTE | 2017-07-07 11:00 | PD ---
HPI Chief Complaint: Skin Problem Time Seen by Provider: 10:30 Travel History International Travel<30 days: No Contact w/Intl Traveler<30days: No Traveled to known affect area: No History of Present Illness HPI 62 year-old female presents to the emergency room for evaluation of itchy scabs throughout her body. Patient states she has a bacterial infection. States she was admitted for the same 2 months ago. Patient believed at first she was being bit by bugs but now believes the scabs are coming from inside of her. She believes there are white things crawling inside of her body. She is requesting antibiotics so that it doesn't get as bad as it did last time. EMR shows she had bilateral cellulitis of her upper extremities for which she was admitted overnight for antibiotics. She was discharged with Keflex and mupirocin. Reports chills but denies any objective fevers. Denies IV drug use. PFSH Past Medical History Arthritis: No Asthma: No Autoimmune Disease: No Blood Disorders: No Anxiety: No Depression: No Heart Rhythm Problems: No Cancer: No Cardiovascular Problems: No High Cholesterol: No Chemotherapy: No Chest Pain: No Congestive Heart Failure: No COPD: No Cerebrovascular Accident: No Diabetes: No Diminished Hearing: No GERD: No Glaucoma: No Genitourinary: No Headaches: Yes Hepatitis: Yes (C) Hiatal Hernia: No Hypertension: Yes Kidney Stones: No Musculoskeletal: No Neurologic: Yes Psychiatric: No Reproductive: No Respiratory: No Immunizations Current: Yes Myocardial Infarction: No Radiation Therapy: No Renal Failure: No Seizures: No Sleep Apnea: No Thyroid Disease: No Ulcer: No : 2 Para: 2 Ovarian Cysts: Yes Past Surgical History Abdominal Surgery: No AICD: No Appendectomy: Yes Genitourinary Surgery: No Gynecologic Surgery: Yes (REMOVAL OVARIAN CYST) Hysterectomy: Yes Pacemaker: No Thoracic Surgery: No Other Surgery: Yes Social History Alcohol Use: Yes Tobacco Use: Yes (1 week) Substance Use: Yes (CRACK COCAINE) Allergies-Medications (Allergen,Severity, Reaction): Coded Allergies: No Known Allergies (Verified Adverse Reaction, Unknown, 07/07/17) Reported Meds & Prescriptions Reported Meds & Active Scripts Active No Active Prescriptions or Reported Medications Review of Systems Except as stated in HPI: all other systems reviewed are Neg Physical Exam Narrative GENERAL: Well-nourished, well-developed female in no acute distress. Afebrile. Ambulatory. SKIN: Focused skin assessment warm/dry. Multiple scabs throughout the body. There are very mild excoriations. No evidence of cellulitis. No lymphangitis. HEAD: Normocephalic. EYES: No scleral icterus. No injection or drainage. NECK: Supple, trachea midline. No JVD or lymphadenopathy. CARDIOVASCULAR: Regular rate and rhythm without murmurs, gallops, or rubs. RESPIRATORY: Breath sounds equal bilaterally. No accessory muscle use. PSYCHIATRIC: No delusional thought processes. No hallucinations. Data Data Last Documented VS Vital Signs Date Time Temp Pulse Resp B/P (MAP) Pulse Ox O2 Delivery O2 Flow Rate FiO2 07/07/17 09:57 99.1 89 12 190/86 (120) 99 MDM Medical Decision Making Medical Screen Exam Complete: Yes Emergency Medical Condition: Yes Medical Record Reviewed: Yes Differential Diagnosis Excoriations, dermatillomania, scabies Narrative Course 62-year-old female presents to the emergency room requesting antibiotics for possible skin infection. She has itchy States she has been dealing with this for the past 2 months. States she was admitted for 2 months ago. EMR shows she was admitted for bilateral upper extremity cellulitis. There is no evidence of cellulitis or sepsis at this time. There are scars and scabs at different stages throughout her body consistent with skin picking disorder or possible scabies. Patient will be treated empirically for scabies. She was that there is no need for antibiotics as she has no signs of infection. She will be given topical mupirocin. Told to follow up with her primary care physician or return for worsening symptoms. She understands and agrees to plan. Diagnosis Primary Impression: Excoriation Referrals: Primary Care Physician Additional Instructions: Rest and drink plenty of fluids. Avoid scratching to avoid infection. 5 mupirocin 2 open wounds daily. Apply permethrin to entire body, leave on for 8 hours then wash off. Repeat in one week. Wash all clothes and sheets with very hot water. Follow-up with a primary care physician. Return to the emergency room for worsening symptoms. Med/Other Pt SpecificInfo: Prescription(s) given Scripts Permethrin Topical 5% (Permethrin Topical 5%) 5% Cream 1 APPLIC TOPICAL ONCE for Scabies, #1 TUBE 0 Refills Prov: Dale Lopez MD 07/07/17 Mupirocin Topical (Mupirocin Topical) 2 % Oint 1 APPLIC TOPICAL BID for Mgmt Bacterial Infection, #22 GM 0 Refills Prov: Dale Lopez MD 07/07/17 Disposition: 01 DISCHARGE HOME Condition: Stable Nohemy Ayala Jul 07, 2017 11:00
== END 2017-07-07 11:37 | disposition home or self-care (01) ==
LOC: NEPD 09:55
DX: L98.1 Factitial dermatitis (principal); I10 Essential (primary) hypertension; Z86.19 Personal history of other infectious and parasitic diseases; Z72.0 Tobacco use
CPT/HCPCS: 99283

== ENCOUNTER 2017-11-13 10:31 | Emergency (ER) | payer SELFPAY ==
[~2017-11-13 10:31] MED LIST changes: -BACI500O2 TOPICAL; -CEPH-460 PO; -LACTTAB8 PO; +MUPI2OIN TOPICAL; +PERM5CRE TOPICAL
[2017-11-13 10:49] VITALS: BP 160/77; PULSE 81; RESP 16; TEMP 98.7; O2SAT 100
--- NOTE | 2017-11-13 11:39 | RADRPT ---
EXAM DATE/TIME: 11/13/2017 11:04 [facility] COMPARISON: No previous studies available for comparison. INDICATIONS : Fall 2 days ago. Right distal forearm fracture. MEDICAL HISTORY : Hypertension. Hepatitis C. SURGICAL HISTORY : None. ENCOUNTER: Initial ACUITY: 2 days PAIN SCORE: 10/10 LOCATION: Right distal forearm FINDINGS: There is a transverse fracture through the distal metaphysis of the radius with mild posterior angula tion. The distal ulna appears to be intact. The shaft of the radius and ulna are intact. No radiop aque foreign bodies. Chondrocalcinosis of the scapholunate ligament. CONCLUSION: Colles' fracture. Italo Walden MD on November 13, 2017 at 11:36 Board Certified Radiologist. This report was verified electronically.
--- NOTE | 2017-11-13 13:28 | PD ---
HPI Chief Complaint: Injury Time Seen by Provider: 13:25 Travel History International Travel<30 days: No Contact w/Intl Traveler<30days: No Traveled to known affect area: No History of Present Illness HPI Arrived via EMS. 62-year-old female presents to the emergency department with complaint of right hand and wrist pain after tripping and falling over her own "[place] feet." Reports hitting her head on the right side and had loss of consciousness. Reports alcohol use. Patient smells of alcohol today. Denies neck pain or back pain. Denies vomiting. Denies headache, lightheadedness, dizziness, change in mentation, confusion, disorientation, slurred speech, focal deficits or weakness. Denies chest pain, shortness of breath, abdominal pain. Denies paresthesias, loss of sensation to the affected extremity. Reports decreased range of motion, swelling of the hand and wrist. Rates pain 10/10. Describes as throbbing. Has been taking aspirin for symptom management. No primary care provider. No known allergies. History of hypertension and does not take medications. Has no other medical complaints. No other modifying factors or associated signs and symptoms. PFSH Past Medical History Arthritis: No Asthma: No Autoimmune Disease: No Blood Disorders: No Anxiety: No Depression: No Heart Rhythm Problems: No Cancer: No Cardiovascular Problems: No High Cholesterol: No Chemotherapy: No Chest Pain: No Congestive Heart Failure: No COPD: No Cerebrovascular Accident: No Diabetes: No Diminished Hearing: No GERD: No Glaucoma: No Genitourinary: No Headaches: Yes Hepatitis: Yes (C) Hiatal Hernia: No Hypertension: Yes Kidney Stones: No Musculoskeletal: No Neurologic: Yes Psychiatric: No Reproductive: No Respiratory: No Immunizations Current: Yes Myocardial Infarction: No Radiation Therapy: No Renal Failure: No Seizures: No Sleep Apnea: No Thyroid Disease: No Ulcer: No : 2 Para: 2 Ovarian Cysts: Yes Past Surgical History Abdominal Surgery: No AICD: No Appendectomy: Yes Genitourinary Surgery: No Gynecologic Surgery: Yes (REMOVAL OVARIAN CYST) Hysterectomy: Yes Pacemaker: No Thoracic Surgery: No Other Surgery: Yes Social History Alcohol Use: Yes Tobacco Use: Yes (1 week) Substance Use: Yes (CRACK COCAINE) Allergies-Medications (Allergen,Severity, Reaction): Coded Allergies: No Known Allergies (Verified Adverse Reaction, Unknown, 07/07/17) Reported Meds & Prescriptions Reported Meds & Active Scripts Active Permethrin Topical 5% (Permethrin) 5% Cream 1 Applic TOPICAL ONCE Mupirocin Topical (Mupirocin) 2 % Oint 1 Applic TOPICAL BID Review of Systems Except as stated in HPI: all other systems reviewed are Neg Physical Exam Narrative GENERAL: Well-nourished, well-developed female patient, in no acute distress; smells of [place] SKIN: Warm and dry. Abrasion noted to right forehead/scalp area; without edema , erythema, drainage. HEAD: Atraumatic. Normocephalic. No facial droop noted. Tongue midline. Shoulder shrug equal. EYES: Pupils equal and round at 3 mm with brisk reaction. No scleral icterus. No injection or drainage. PERRLA. EOMI. no raccoon eyes. ENT: Mucosa pink and moist. Airway patent. NECK: Trachea midline. No lymphadenopathy. CARDIOVASCULAR: Regular rate. RESPIRATORY: No accessory muscle use. GASTROINTESTINAL: Flat. MUSCULOSKELETAL: Right upper extremity in EMS splint and arm sling. Right hand and wrist are edematous; 2+ radial pulse; sensory intact; without erythema or ecchymosis. No obvious deformities. No clubbing. No cyanosis. No edema. NEUROLOGICAL: Awake and alert. Oriented 4. No obvious cranial nerve deficits. Motor grossly within normal limits. Normal speech. No ataxia. No lower extremity drift. No upper or lower extremity drift. Sensory intact and equal bilaterally. Moves all extremities. Active plantar and dorsiflexion and strength equal bilaterally. 5/5 strength to all extremities. PSYCHIATRIC: Appropriate mood and affect; insight and judgment normal. Data Data Last Documented VS Vital Signs Date Time Temp Pulse Resp B/P (MAP) Pulse Ox O2 Delivery O2 Flow Rate FiO2 11/13/17 10:49 98.7 81 16 160/77 (104) 100 Orders Orders Forearm (2vws) (11/13/17 ) Splint Or Brace Apply/Monitor (11/13/17 13:40) MDM Medical Decision Making Medical Screen Exam Complete: Yes Emergency Medical Condition: Yes Medical Record Reviewed: Yes Differential Diagnosis Wrist fracture, hand fracture, fall, head injury Narrative Course 62-year-old female with right pain and hand pain after fall 2 days ago. She says she tripped over her own feet. The patient reports alcohol use 2 days ago and she smells of alcohol today. I do not feel that she is a good historian about her fall. She says she hit her head or loss consciousness. Her right hand is swollen and painful on exam. I discussed doing a CT scan of the patient 's head and x-ray in the right hand and the patient refuses. Patient is clinically sober, is alert and oriented 4, and able to make her own medical decisions. Right wrist x-ray concludes: Colles' fracture. The patient agrees to wait for a splint to be applied for the fracture, although she states she is going to walk out the door and take it off. [place]ong splint applied. I instructed the patient that she needs to follow-up with her primary care provider and hand surgeon. She verbalized understanding and agreement. 1400: AMA: The risks of leaving against medical advice without further evaluation treatment were discussed with the patient. These risks include cardiac dysfunction, cardiac dysrhythmia, possible heart attack, possible stroke or . The patient indicated understanding of these risks and appeared to have the capacity to make this decision. Diagnosis Primary Impression: Left against medical advice Disposition: 07 AGAINST MEDICAL ADVICE Alona Mota [facility] Nov 13, 2017 13:28
== END 2017-11-13 14:28 | disposition left against medical advice (07) ==
LOC: NEPK 10:31
DX: S52.531A Colles' fracture of right radius, initial encounter for closed fracture (principal); W01.0XXA Fall on same level from slipping, tripping and stumbling without subsequent striking against object, initial encounter; I10 Essential (primary) hypertension; B19.20 Unspecified viral hepatitis C without hepatic coma; F14.90 Cocaine use, unspecified, uncomplicated; Z72.0 Tobacco use; Z53.20 Procedure and treatment not carried out because of patient's decision for unspecified reasons
CPT/HCPCS: 29125; 73090